=== PATIENT | female | born 1950 | race Caucasian/White ===

== ENCOUNTER 2016-09-21 12:18 | Observation (INO) | payer OTHER ==
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
[2016-09-21] MEDS ORDERED: CLINDAMYCIN 600MG PREMIX IVPB 50 ML IVPB ONE ×2 (12:55→13:47)
[2016-09-21] MEDS ORDERED: SODIUM CHLORIDE 1,000 ML IV STA (12:55)
[2016-09-21] MEDS ORDERED: KETOROLAC TROMETHAMINE 30 MG/1 ML VIAL IVPUSH ONE (12:55)
[2016-09-21] MEDS ORDERED: KETOROLAC TROMETHAMINE 30 MG/1 ML VIAL ONE (13:47)
[2016-09-21 13:48] LABS: BASOPHIL 0.2 % (0-2.0); EOSINOPHIL 0.9 % (0-4.5); MCH 28.8 pg (25.7-33.7); MCHC 33.6 g/dl (32.0-36.0); MEAN CELL VOLUME 85.8 fl (80-96); MEAN PLT VOLUME 8.1 fl (7.5-11.1); NEUTROPHILS 75.1 % (42.8-82.8); PLATELET COUNT 220 K/MM3 (134-434); RDW 13.7 % (11.6-15.6); WHITE BLOOD COUNT 10.2 K/mm3 (4.0-10.0)
[2016-09-21 14:21] LABS: ALBUMIN 3.9 g/dl (3.4-5.0); ALK PHOS 81 U/L (45-117); ANION GAP 11 (8-16); BILIRUBIN,TOTAL 0.6 mg/dL (0.2-1.0); CALCIUM 9.3 mg/dL (8.5-10.1); CO2 24 mmol/L (21-32); COCKROFT - GAULT 115.3025; CREATININE 0.6 mg/dL (0.55-1.02); GLUCOSE,RANDOM 91 mg/dL (74-106); SGOT/AST 33 U/L (15-37); SGPT/ALT 46 U/L (12-78); TOT PROT 6.7 g/dl (6.4-8.2)
[2016-09-21] MEDS ORDERED: KETOROLAC TROMETHAMINE 15 MG/ML VIAL IVPUSH PRN (17:06)
[2016-09-21] MEDS ORDERED: ACETAMINOPHEN 325 MG TABLET (FP) PO PRN (17:07)
[2016-09-21] MEDS ORDERED: ONDANSETRON 4 MG/2 ML VIAL IVPB PRN (17:07)
--- NOTE | 2016-09-21 17:08 | HP ---
CHIEF COMPLAINT: Dental pain PCP: Dr. Rosales ([place]) HISTORY OF PRESENT ILLNESS: This is a 66 year old female with a history only of bradycardia who presented to the ED today complaining of one week of left upper dental pain, now associated with facial pain and swelling. She has had subjective fevers/chills. She has difficulty opening her mouth fully and has not eaten for four days. ER course was notable for: (1) CT facial bones: periapical abscess involving left first premolar tooth with suggstion of odontogenic soft tissue abscess 1.3 x 0.5cm. Incidentally noted are expanded appearance of the superior ophthalmic veins bilaterally which could be on the basis of chronic partial thrombosis. (2) Afebrile, WBC 10.2 (3) Abscess partially drained in ED Recent Travel: None Surgical History: Appendectomy, cholecystectomy, hernia repair Social History: Retired carpet layer. Lives alone, has help from caityon's family nearby when needed. Smoking: Quit >30 yrs ago Alcohol: None Drugs: None Family History: Non-contributory to this admission Allergies PCN ("swell up"), codeine (rash) HOME MEDICATIONS: Home Medications Medication Instructions Recorded Aspirin [ASA -] 81 mg PO DAILY 09/21/16 REVIEW OF SYSTEMS CONSTITUTIONAL: Subjective fevers/chills Absent: diaphoresis, generalized weakness, malaise, loss of appetite, weight change HEENT: See HPI Absent: rhinorrhea, nasal congestion, throat pain, throat swelling, difficulty swallowing, mouth swelling, ear pain, eye pain, visual changes CARDIOVASCULAR: Absent: chest pain, syncope, palpitations, irregular heart rate, lightheadedness , peripheral edema RESPIRATORY: Absent: cough, shortness of breath, dyspnea with exertion, orthopnea, wheezing, stridor, hemoptysis GASTROINTESTINAL: Absent: abdominal pain, abdominal distension, nausea, vomiting, diarrhea, constipation, melena, hematochezia GENITOURINARY: Absent: dysuria, frequency, urgency, hesitancy, hematuria, flank pain, genital pain MUSCULOSKELETAL: Absent: myalgia, arthralgia, joint swelling, back pain, neck pain SKIN: Absent: rash, itching, pallor HEMATOLOGIC/IMMUNOLOGIC: Absent: easy bleeding, easy bruising, lymphadenopathy, frequent infections ENDOCRINE: Absent: unexplained weight gain, unexplained weight loss, heat intolerance, cold intolerance NEUROLOGIC: Absent: headache, focal weakness or paresthesias, dizziness, unsteady gait, seizure, mental status changes, bladder or bowel incontinence PSYCHIATRIC: Absent: anxiety, depression, suicidal or homicidal ideation, hallucinations. PHYSICAL EXAMINATION Vital Signs - 24 hr 09/21/16 12:32 Temperature 98.2 F Pulse Rate 55 L Respiratory 18 Rate Blood Pressure 141/89 O2 Sat by Pulse 97 Oximetry (%) GENERAL: Awake, alert, and fully oriented, in no acute distress. HEAD: Normal with no signs of trauma. EYES: Pupils equal, round and reactive to light, extraocular movements intact, sclera anicteric, conjunctiva clear. No lid lag. EARS, NOSE, THROAT: Ears normal, nares patent, oropharynx clear without exudates. Moist mucous membranes. Fluctuant, tender mass at #12 tooth, spontaneously draining pus. Very tender over left maxilla. Mild trismus. Submandibular space is soft and without edema. NECK: Normal range of motion, supple without lymphadenopathy, JVD, or masses. LUNGS: Breath sounds equal, clear to auscultation bilaterally. No wheezes, and no crackles. No accessory muscle use. HEART: Regular rate and rhythm, normal S1 and S2 without murmur, rub or gallop. ABDOMEN: Soft, nontender, not distended, normoactive bowel sounds, no guarding, no rebound, no masses. No hepatomegaly or splenomegaly. MUSCULOSKELETAL: Normal range of motion at all joints. No bony deformities or tenderness. No CVA tenderness. UPPER EXTREMITIES: 2+ pulses, warm, well-perfused. No cyanosis. No clubbing. No peripheral edema. LOWER EXTREMITIES: 2+ pulses, warm, well-perfused. No calf tenderness. No peripheral edema. NEUROLOGICAL: Cranial nerves II-XII intact. Normal speech. Normal gait. PSYCHIATRIC: Cooperative. Good eye contact. Appropriate mood and affect. SKIN: Warm, dry, normal turgor, no rashes or lesions noted, normal capillary refill. Laboratory Results - last 24 hr 09/21/16 09/21/16 13:40 13:40 WBC 10.2 H RBC 4.68 Hgb 13.5 Hct 40.2 MCV 85.8 MCHC 33.6 RDW 13.7 Plt Count 220 MPV 8.1 Neutrophils % 75.1 Lymphocytes % 17.7 Monocytes % 6.1 Eosinophils % 0.9 Basophils % 0.2 Sodium 141 Potassium 4.2 Chloride 106 Carbon Dioxide 24 Anion Gap 11 BUN 15 Creatinine 0.6 Creat Clearance w eGFR > 60 Random Glucose 91 Calcium 9.3 Total Bilirubin 0.6 AST 33 ALT 46 Alkaline Phosphatase 81 Total Protein 6.7 Albumin 3.9 ASSESSMENT/PLAN: 66 year old female with facial cellulitis secondary to dental abscess. Problem List - Problem (1) Facial cellulitis Assessment/Plan: -Clindamycin 600mg q6h IVPB -Toradol 15mg q6h IVP prn pain (patient reports she is intolerant of all narcotics) -IVF -Zofran prn nausea -Monitor temp, WBC -Has dental appointment on Saturday -If worsening, consider transfer to facility with [facility] services Code(s): L03.211 - CELLULITIS OF FACE (2) Bradycardia Assessment/Plan: -Chronic, asymptomatic -Hold ASA while receiving Toradol Code(s): R00.1 - BRADYCARDIA, UNSPECIFIED (3) DVT prophylaxis Assessment/Plan: -Low risk -Ambulation Code(s): MZM9693 - Visit type - Emergency Visit Emergency Visit: Yes ED Registration Date: 09/21/16 Care time: The patient presented to the Emergency Department on the above date and was hospitalized for further evaluation of their emergent condition. - New Patient This patient is new to me today: Yes Date on this admission: 09/21/16 - Critical Care Critical Care patient: No
[2016-09-21] MEDS: SODIUM CHLORIDE 1,000 ML IV SCH ×2 (18:32→22:27)
[2016-09-21 20:24] VITALS: BMI 35.2
[2016-09-21] MEDS: KETOROLAC TROMETHAMINE 15 MG/ML VIAL IVPB PRN (22:25)
[2016-09-21] MEDS: CLINDAMYCIN 600MG PREMIX IVPB 50 ML IVPB SCH (22:26)
[2016-09-22] MEDS: CLINDAMYCIN 600MG PREMIX IVPB 50 ML IVPB SCH ×4 (03:40→20:28)
[2016-09-22 08:05] LABS: BASOPHIL 0.4 % (0-2.0); EOSINOPHIL 1.4 % (0-4.5); MCH 28.6 pg (25.7-33.7); MCHC 33.7 g/dl (32.0-36.0); MEAN CELL VOLUME 84.7 fl (80-96); NEUTROPHILS 62.9 % (42.8-82.8); PLATELET COUNT 223 K/MM3 (134-434); RDW 13.6 % (11.6-15.6); WHITE BLOOD COUNT 7.7 K/mm3 (4.0-10.0)
[2016-09-22] MEDS: KETOROLAC TROMETHAMINE 15 MG/ML VIAL IVPB PRN ×2 (08:14→17:50)
[2016-09-22 08:50] LABS: ALBUMIN 3.2 g/dl (3.4-5.0); ALK PHOS 72 U/L (45-117); ANION GAP 8 (8-16); BILIRUBIN,TOTAL 0.4 mg/dL (0.2-1.0); CALCIUM 8.6 mg/dL (8.5-10.1); CO2 26 mmol/L (21-32); COCKROFT - GAULT 122.3405; CREATININE 0.6 mg/dL (0.55-1.02); GLUCOSE,RANDOM 93 mg/dL (74-106); SGOT/AST 24 U/L (15-37); SGPT/ALT 36 U/L (12-78); TOT PROT 5.7 g/dl (6.4-8.2)
[2016-09-22] MEDS ORDERED: AMPICILLIN NA/SULBACTAM NA 100 ML IVPB SCH (09:00)
[2016-09-22] MEDS: SODIUM CHLORIDE 1,000 ML IV SCH ×2 (11:27→17:50)
--- NOTE | 2016-09-22 13:37 | PN ---
Physical Exam: SUBJECTIVE: Patient seen and examined. She reports having the chills last night , she feels well enough this AM to wash up. she cannot open her mouth wide due to tenderness. OBJECTIVE: Vital Signs Period Temp Pulse Resp BP Sys/Major Pulse Ox Last 24 Hr 98 F-99.5 F 56-65 16-20 140-154/79-85 98-98 PE Neuro: alert, awake, cn 2-12intact HEENT: L buccal swelling and cheek tenderness, warm, no erythema, abscess noted to upper gum Pulm: CTAB CV: s1 s2 bradycardia no mrg Abd: s nt nd + bs ExT: warm, no le edema Laboratory Results - last 24 hr 09/22/16 09/22/16 06:00 06:00 WBC 7.7 RBC 4.30 Hgb 12.3 Hct 36.4 MCV 84.7 MCHC 33.7 RDW 13.6 Plt Count 223 MPV 9.0 D Neutrophils % 62.9 Lymphocytes % 26.9 D Monocytes % 8.4 Eosinophils % 1.4 Basophils % 0.4 Sodium 140 Potassium 4.2 Chloride 106 Carbon Dioxide 26 Anion Gap 8 BUN 10 D Creatinine 0.6 Creat Clearance w eGFR > 60 Random Glucose 93 Calcium 8.6 Total Bilirubin 0.4 D AST 24 D ALT 36 D Alkaline Phosphatase 72 Total Protein 5.7 L Albumin 3.2 L Active Medications Generic Name Dose Route Start Last Admin Trade Name Freq PRN Reason Stop Dose Admin Acetaminophen 650 mg 09/21/16 17:07 Tylenol - PO Q4H PRN FEVER OR PAIN Clindamycin Phosphate 50 mls @ 100 mls/hr 09/21/16 21:00 09/22/16 08:15 Cleocin 600 Mg Premix Ivpb - IVPB 100 mls/hr Q6H-IV GERMAINE Administration Sodium Chloride 1,000 mls @ 100 mls/hr 09/21/16 17:15 09/21/16 22:27 Normal Saline - IV 09/23/16 03:14 100 mls/hr ASDIR GERMAINE Administration Ampicillin Sodium/Sulbactam 100 mls @ 200 mls/hr 09/22/16 09:45 Sodium 3 gm/ Sodium Chloride IVPB Q6H-IV GERMAINE Ketorolac Tromethamine 15 mg 09/21/16 21:38 09/22/16 08:14 Toradol Injection - IVPB 09/26/16 17:05 15 mg Q6H PRN Administration PAIN Ondansetron HCl 4 mg 09/21/16 17:07 Zofran Injection IVPB Q6H PRN NAUSEA Microbiology 09/21/16 13:26 Blood - Peripheral Venous Blood Culture - Preliminary NO GROWTH OBTAINED AFTER 24 HOURS, INCUBATION TO CONTINUE FOR 4 DAYS. 09/21/16 13:26 Blood - Peripheral Venous Blood Culture - Preliminary NO GROWTH OBTAINED AFTER 24 HOURS, INCUBATION TO CONTINUE FOR 4 DAYS. Assessment: 66 year old female with facial cellulitis secondary to dental abscess. Plan: 1. Facial cellulitis - Start unasyn q6 - Clindamycin 600mg q6h IVPB - Toradol 15mg q6h IVP prn pain - Has dental appointment on Saturday with Dr. Porter [phone] - If worsening, will transfer [facility] services 2. Chronic asymptomatic bradycardia - Hold ASA while receiving Toradol 3. DVT - OOB and ambulate Visit type - Emergency Visit Emergency Visit: Yes ED Registration Date: 09/21/16 Care time: The patient presented to the Emergency Department on the above date and was hospitalized for further evaluation of their emergent condition. - New Patient This patient is new to me today: Yes Date on this admission: 09/22/16 - Critical Care Critical Care patient: No
[2016-09-22] MEDS: AMPICILLIN NA/SULBACTAM NA 3 GM in SODIUM CHLORIDE 100 ML IVPB SCH ×2 (14:27→21:05)
[2016-09-23] MEDS: CLINDAMYCIN 600MG PREMIX IVPB 50 ML IVPB SCH ×4 (02:08→21:08)
[2016-09-23] MEDS ORDERED: PT OWN MED DRAWER 7, Y5N ONE ×4 (02:11→21:03)
[2016-09-23] MEDS: AMPICILLIN NA/SULBACTAM NA 3 GM in SODIUM CHLORIDE 100 ML IVPB SCH ×4 (02:12→21:08)
[2016-09-23] MEDS: KETOROLAC TROMETHAMINE 15 MG/ML VIAL IVPB PRN (05:17)
[2016-09-23 08:18] LABS: BASOPHIL 0.1 % (0-2.0); EOSINOPHIL 1.9 % (0-4.5); MCH 28.6 pg (25.7-33.7); MEAN CELL VOLUME 84.2 fl (80-96); MEAN PLT VOLUME 8.8 fl (7.5-11.1); NEUTROPHILS 55.3 % (42.8-82.8); PLATELET COUNT 234 K/MM3 (134-434); RDW 13.3 % (11.6-15.6); WHITE BLOOD COUNT 6.6 K/mm3 (4.0-10.0)
--- NOTE | 2016-09-23 13:27 | PN ---
Physical Exam: SUBJECTIVE: Patient seen and examined. She is feeling better, her pain has been controlled up until 11. She still cant open her mouth w/o assistance. OBJECTIVE: Vital Signs Period Temp Pulse Resp BP Sys/Major Pulse Ox Last 24 Hr 98.5 F-99.1 F 62-68 18-20 123-148/70-92 PE Neuro: alert, awake, cn 2-12intact HEENT: L buccal swelling- improved, cheek tenderness, warm, no erythema, abscess noted to upper gum Pulm: CTAB CV: s1 s2 bradycardia no mrg Abd: s nt nd + bs ExT: warm, no le edema Laboratory Results - last 24 hr 09/23/16 06:00 WBC 6.6 RBC 4.22 Hgb 12.1 Hct 35.6 MCV 84.2 MCHC 34.0 RDW 13.3 Plt Count 234 MPV 8.8 Neutrophils % 55.3 Lymphocytes % 33.8 D Monocytes % 8.9 Eosinophils % 1.9 Basophils % 0.1 Active Medications Generic Name Dose Route Start Last Admin Trade Name Freq PRN Reason Stop Dose Admin Acetaminophen 650 mg 09/21/16 17:07 Tylenol - PO Q4H PRN FEVER OR PAIN Clindamycin Phosphate 50 mls @ 100 mls/hr 09/21/16 21:00 09/23/16 08:57 Cleocin 600 Mg Premix Ivpb - IVPB 100 mls/hr Q6H-IV GERMAINE Administration Ampicillin Sodium/Sulbactam 100 mls @ 200 mls/hr 09/22/16 09:45 09/23/16 08:57 Sodium 3 gm/ Sodium Chloride IVPB 200 mls/hr Q6H-IV GERMAINE Administration Ketorolac Tromethamine 15 mg 09/21/16 21:38 09/23/16 05:17 Toradol Injection - IVPB 09/26/16 17:05 15 mg Q6H PRN Administration PAIN Ondansetron HCl 4 mg 09/21/16 17:07 Zofran Injection IVPB Q6H PRN NAUSEA Tramadol HCl 50 mg 09/23/16 13:24 Ultram - PO Q4H PRN PAIN Assessment: 66 year old female with facial cellulitis secondary to dental abscess. Plan: 1. Facial cellulitis d/t dental abscess - Improved - Unasyn q6 - Clindamycin 600mg q6h IVPB - Trial Ultram prn pain - Toradol 15mg q6h IVP prn pain - Has dental appointment as walk in w/ Dr. Porter [phone] - If worsening, will transfer [facility] services - Trial soft diet 2. Chronic asymptomatic bradycardia - Hold ASA while receiving Toradol 3. DVT - OOB and ambulate Visit type - Emergency Visit Emergency Visit: Yes ED Registration Date: 09/21/16 Care time: The patient presented to the Emergency Department on the above date and was hospitalized for further evaluation of their emergent condition. - New Patient This patient is new to me today: No - Critical Care Critical Care patient: No
[2016-09-23] MEDS: traMADol HCL 50 MG TABLET PO PRN (15:05)
[2016-09-23] MEDS: POLYETHYLENE GLYCOL 3350 119 GM BTL PO SCH (15:05)
--- NOTE | 2016-09-23 16:29 | EKG ---
Test Reason : Blood Pressure : / mmHG Vent. Rate : 049 BPM Atrial Rate : 049 BPM P-R Int : 140 ms QRS Dur : 084 ms QT Int : 454 ms P-R-T Axes : 007 030 043 degrees QTc Int : 410 ms SINUS BRADYCARDIA OTHERWISE NORMAL ECG NO PREVIOUS ECGS AVAILABLE Confirmed by TRINA MARTINES MD ([id number]) on 09/23/2016 4:29:26 PM Referred By: Confirmed By:TRINA MARTINES MD
[2016-09-23] MEDS: SENNOSIDES 8.6MG TABLET (FP) PO SCH (21:08)
[2016-09-24] MEDS ORDERED: PT OWN MED DRAWER 7, Y5N ONE ×2 (02:09→11:19)
[2016-09-24] MEDS: AMPICILLIN NA/SULBACTAM NA 3 GM in SODIUM CHLORIDE 100 ML IVPB SCH ×4 (02:13→20:21)
[2016-09-24] MEDS: CLINDAMYCIN 600MG PREMIX IVPB 50 ML IVPB SCH ×4 (02:13→21:18)
[2016-09-24] MEDS: traMADol HCL 50 MG TABLET PO PRN (11:25)
[2016-09-24] MEDS: POLYETHYLENE GLYCOL 3350 119 GM BTL PO SCH (11:27)
--- NOTE | 2016-09-24 18:03 | PN ---
Physical Exam: SUBJECTIVE: Patient seen and examined. Pt denies fevers. She does c/o hardening near L nasal bridge feeling as though something has accumulated. OBJECTIVE: Vital Signs Period Temp Pulse Resp BP Sys/Major Pulse Ox Last 24 Hr 97.7 F-98.7 F 58-73 18-22 113-129/65-78 95-95 PE Neuro: alert, awake, cn 2-12intact HEENT: L buccal swelling- improved, cheek tenderness, left superior orbital ? collection, appears swollen, no erythema, mild tenderness Pulm: CTAB CV: s1 s2 rrr no mrg Abd: s nt nd + bs ExT: warm, no le edema Active Medications Generic Name Dose Route Start Last Admin Trade Name Freq PRN Reason Stop Dose Admin Acetaminophen 650 mg 09/21/16 17:07 Tylenol - PO Q4H PRN FEVER OR PAIN Clindamycin Phosphate 50 mls @ 100 mls/hr 09/21/16 21:00 09/24/16 15:36 Cleocin 600 Mg Premix Ivpb - IVPB Not Given Q6H-IV GERMAINE Ampicillin Sodium/Sulbactam 100 mls @ 200 mls/hr 09/22/16 09:45 09/24/16 15:36 Sodium 3 gm/ Sodium Chloride IVPB Not Given Q6H-IV GERMAINE Ketorolac Tromethamine 15 mg 09/21/16 21:38 09/23/16 05:17 Toradol Injection - IVPB 09/26/16 17:05 15 mg Q6H PRN Administration PAIN Ondansetron HCl 4 mg 09/21/16 17:07 Zofran Injection IVPB Q6H PRN NAUSEA Polyethylene Glycol 17 gm 09/23/16 14:00 09/24/16 11:27 Miralax (For Daily Use) - PO Not Given DAILY GERMAINE Senna 1 tab 09/23/16 22:00 09/23/16 21:08 Senna - PO 1 tab HS GERMAINE Administration Tramadol HCl 50 mg 09/23/16 13:24 09/24/16 11:25 Ultram - PO 50 mg Q4H PRN Administration PAIN Assessment: 66 year old female with facial cellulitis secondary to dental abscess. Plan: 1. Facial cellulitis d/t dental abscess - Will obtain repeat facial bone CT to assess new collection - ENT consulted, awaiting recs, or will have to transfer for [facility] - Unasyn q6 - Clindamycin 600mg q6h IVPB - Ultram prn pain - D/w dentist Dr. Porter, he will see her after she is evaluated by [facility] as follow up, he wont do the extraction ([phone]) 2. Chronic asymptomatic bradycardia - Hold ASA while receiving Toradol 3. DVT - OOB and ambulate Visit type - Emergency Visit Emergency Visit: Yes ED Registration Date: 09/21/16 Care time: The patient presented to the Emergency Department on the above date and was hospitalized for further evaluation of their emergent condition. - New Patient This patient is new to me today: No - Critical Care Critical Care patient: No
[2016-09-24] MEDS ORDERED: SODIUM CHLORIDE 1,000 ML IV SCH (18:15)
[2016-09-24] MEDS ORDERED: ACETAMINOPHEN/CAFFEINE/BUTALBITAL 1 TAB PO ONE (18:16)
[2016-09-24] MEDS: SENNOSIDES 8.6MG TABLET (FP) PO SCH (21:20)
[2016-09-25] MEDS ORDERED: PT OWN MED DRAWER 7, Y5N ONE (03:04)
[2016-09-25] MEDS: AMPICILLIN NA/SULBACTAM NA 3 GM in SODIUM CHLORIDE 100 ML IVPB SCH ×2 (03:08→09:35)
[2016-09-25] MEDS: CLINDAMYCIN 600MG PREMIX IVPB 50 ML IVPB SCH ×2 (03:38→09:35)
[2016-09-25 07:21] LABS: MCH 28.5 pg (25.7-33.7); MCHC 33.9 g/dl (32.0-36.0); MEAN PLT VOLUME 8.4 fl (7.5-11.1); PLATELET COUNT 274 K/MM3 (134-434); RDW 13.3 % (11.6-15.6); WHITE BLOOD COUNT 6.6 K/mm3 (4.0-10.0)
[2016-09-25 07:48] LABS: CALCIUM 9.6 mg/dL (8.5-10.1)
[2016-09-25 07:51] LABS: COCKROFT - GAULT 104.8645; CREATININE 0.7 mg/dL (0.55-1.02)
[2016-09-25] MEDS: traMADol HCL 50 MG TABLET PO PRN (09:35)
--- NOTE | 2016-09-25 10:15 | DS ---
Physical Exam: SUBJECTIVE: Patient seen and examined OBJECTIVE: Vital Signs Period Temp Pulse Resp BP Sys/Major Pulse Ox Last 24 Hr 98.2 F-99.5 F 47-73 18-20 101-115/59-79 95 PE Laboratory Results - last 24 hr 09/25/16 09/25/16 06:00 06:00 WBC 6.6 RBC 4.69 Hgb 13.4 D Hct 39.4 MCV 84.0 MCHC 33.9 RDW 13.3 Plt Count 274 MPV 8.4 Sodium 141 Potassium 5.0 Chloride 105 Carbon Dioxide 28 Anion Gap 8 BUN 13 D Creatinine 0.7 Random Glucose 96 Calcium 9.6 HOSPITAL COURSE: Date of Admission:09/21/16 Date of Discharge: 09/25/16 Minutes to complete discharge: 37 Discharge Summary Reason For Visit: CELLULITIS OF THE FACE; DENTAL ABSCESS Current Active Problems Bradycardia (Acute) DVT prophylaxis (Acute) Dental abscess (Acute) Facial cellulitis (Acute) Condition: Stable - Instructions Referrals: Linda Payan MD [Primary Care Provider] - - Home Medications Comprehensive Discharge Medication List: Ambulatory Orders Aspirin [ASA -] 81 mg PO DAILY 09/21/16 Amox-Tr/K Cl [Augmentin - 875Mg Tablet] 1 tab PO BID #28 tablet 09/25/16 Clindamycin [Cleocin -] 300 mg PO Q6HPO #44 capsule 09/25/16
--- NOTE | 2016-09-25 10:27 | DS ---
Physical Exam: SUBJECTIVE: Patient seen and examined. She had pain all night. The warmth in her cheek is less. She denies fever, chills, visual changes. Today she reported she has an PCN allergy. OBJECTIVE: Vital Signs Period Temp Pulse Resp BP Sys/Major Pulse Ox Last 24 Hr 98.2 F-99.5 F 47-73 18-20 101-115/59-79 95 PE Neuro: alert, awake, cn 2-12intact HEENT: L buccal swelling- improved, cheek tenderness, left superior orbital/ maxillary swelling, fluctant, no erythema, mild tenderness Pulm: CTAB, left chest mild petechiae CV: s1 s2 rrr no mrg Abd: s nt nd + bs ExT: warm, no le edema Laboratory Results - last 24 hr 09/25/16 09/25/16 06:00 06:00 WBC 6.6 RBC 4.69 Hgb 13.4 D Hct 39.4 MCV 84.0 MCHC 33.9 RDW 13.3 Plt Count 274 MPV 8.4 Sodium 141 Potassium 5.0 Chloride 105 Carbon Dioxide 28 Anion Gap 8 BUN 13 D Creatinine 0.7 Random Glucose 96 Calcium 9.6 HOSPITAL COURSE: Date of Admission:09/21/16 Date of Discharge: 09/25/16 Minutes to complete discharge: 37 Discharge Summary Reason For Visit: CELLULITIS OF THE FACE; DENTAL ABSCESS Current Active Problems Bradycardia (Acute) DVT prophylaxis (Acute) Dental abscess (Acute) Facial cellulitis (Acute) Hospital Course: Initial Hospital Course: Briefly, this 66 year old female with a history only of bradycardia who presented to the ED today complaining of one week of left upper dental pain, now associated with facial pain and swelling. She has had subjective fevers/ chills. She has difficulty opening her mouth fully and has not eaten for four days. Assessment: 66 year old female with facial cellulitis secondary to dental abscess. Subsequent Hospital Course/Progress Note/Discharge Summary by a/p: Plan: 1. Facial cellulitis d/t dental abscess - Repeat CT shows abscess increased - Will stop Unasyn (3 days) - Clindamycin 300mg po q6 x 14 day total - PCN allergy, will send ceftin 500mg bid x11 days - Patient is being discharged. She has an appointment today at the Dental oral surgery clinic at: [address] [id number] [facility], 1st floor - Dr. Andrew Bridges is going to see her, he is expecting her by 11am. She has been NPO for possible sedation at 3pm if procedure can not be done under local sedation. - Taxi has been booked for pt to go directly to the clinic - CT imaging is being sent with pt - Discussed with pt, CM, nursing mgmt and receiving physician, all are aware and agree to above plan 2. Chronic asymptomatic bradycardia - ASA on hold since 09/22 - Can resume ASA once oral surgery completed Dispo: - Plan as above - Dentist Dr. Porter ([phone]) for follow up after OMFS procedure, d/w him yesterday 09/25 he is aware. Condition: Stable - Instructions Diet, Activity, Other Instructions: You are being discharged and are being sent directly to the Dental oral surgery clinic at [facility]. [address] [place] [address]. [place] [id number]. Please report to the [facility] first floor. Dr. Andrew Bridges ([phone]) will see you and address your abscess under local sedation and if need be he will do the procedure until sedation at 3pm. He is expecting you. Please do not eat or drink anything until he sees you in the clinic Antibiotics have been sent to your pharmacy for last picker if you don't receive any from Dr. Bridges Follow up with Dr. Porter after your procedure, he is also expecting you Referrals: Linda Payan MD [Primary Care Provider] - Disposition: TRANSFER ACUTE CARE/OTHER HOSP - Home Medications Comprehensive Discharge Medication List: Ambulatory Orders Aspirin [ASA -] 81 mg PO DAILY 09/21/16 Amox-Tr/K Cl [Augmentin - 875Mg Tablet] 1 tab PO BID #28 tablet 09/25/16 Clindamycin [Cleocin -] 300 mg PO Q6HPO #44 capsule 09/25/16 Lactobacillus Acidophilus [Bacid -] 1 each PO DAILY #14 capsule 09/25/16 This patient is new to me today: No Emergency Visit: Yes ED Registration Date: 09/21/16 Care time: The patient presented to the Emergency Department on the above date and was hospitalized for further evaluation of their emergent condition. Critical Care patient: No - Discharge Referral Referred to [facility] Med [facility].: No
[2016-09-25 14:49] VITALS: BP 117/73; PULSE 61; TEMP 97.8
== END 2016-09-25 11:04 | disposition home or self-care (01) ==
LOC: JER 12:18 → JERBED 17:00 → J7W 18:55
PROVIDERS: ADMIT Internal Medicine; ATTEND Nurse Practitioner Acute Care
PROC: 0C950ZZ Drainage of Upper Gingiva, Open Approach (ICD-10-PCS; principal; 2016-09-21)
PROC: 3E03329 Introduction of Other Anti-infective into Peripheral Vein, Percutaneous Approach (ICD-10-PCS; 2016-09-21)
PROC: 3E0333Z Introduction of Anti-inflammatory into Peripheral Vein, Percutaneous Approach (ICD-10-PCS; 2016-09-21)
PROC: 3E0337Z Introduction of Electrolytic and Water Balance Substance into Peripheral Vein, Percutaneous Approach (ICD-10-PCS; 2016-09-21)
DX: K04.7 Periapical abscess without sinus (principal); L03.211 Cellulitis of face; R00.1 Bradycardia, unspecified
CPT/HCPCS: 36415; 70487-TC; 80048; 80053; 85025; 85027; 87040; 93005; 93010; 99284-25; G0378

== ENCOUNTER 2017-01-16 05:37 | Emergency (ER) | payer OTHER ==
--- NOTE | 2017-01-16 05:53 | PDOC ---
History of Present Illness - General Chief Complaint: Lightheaded Stated Complaint: DIZZINESS Time Seen by Provider: 01/16/17 05:51 - History of Present Illness Initial Comments: 01/16/17 05:52 CHIEF COMPLAINT: dizziness HISTORY OF PRESENT ILLNESS: 66 yo F with hx of vertigo, low blood pressure, and low HR presents to ED with c/o of dizziness. Patient states the dizziness began "14 years ago from a massive ear infection, but this time it started really bothering me around 3 months ago." Patient reports that she received meclizine from her PCP which "usually works" but she has had cold and sinus symptoms "that came out of nowhere" over the past 72 hours, and now she is having a "severe headache and dizziness." She reports photophobia and states that she has not been able to eat due to her discomfort. She reports chills but denies any fever, nausea, or vomiting. She reports congestion, cough, and runny nose that she tried to treat with rodrigo seltzer with no relief. She denies any ringing in the ears, weakness, slurred speech, change in vision. PAST MEDICAL HISTORY: as per HPI FAMILY HISTORY: Denies SOCIAL HISTORY:Denies tobacco, alcohol, illicit drug use. SURGICAL HISTORY: Denies ALLERGIES: clonazepam, codeine, PCN REVIEW OF SYSTEMS General/Constitutional: Intermittent chills. Denies fever. Denies weakness, weight change. HEENT: Denies change in vision. Denies ear pain or discharge. Denies sore throat. Cardiovascular: Denies chest pain or shortness of breath. Respiratory: Cough x "72 hours" Gastrointestinal: Denies nausea, vomiting, diarrhea or constipation. Denies rectal bleeding. Genitourinary: Denies dysuria, frequency, or change in urination. Musculoskeletal: Denies joint or muscle swelling or pain. Denies neck or back pain. Skin: Denies rash or easy bruising. Neurologic: Headache and vertigo, "every time I turn my head to the left". Denies loss of consciousness, or loss of sensation. PHYSICAL EXAM General Appearance: Well-appearing, appropriately dressed. No apparent distress. HEENT: Photophobia. EOMI, PERRLA, normal ENT inspection, normal voice, TMs normal, pharynx normal. No conjunctival pallor. Denies scleral icterus. Respiratory/Chest: Wet cough. Lungs CTAB. No shortness of breath, chest tenderness, respiratory distress, accessory muscle use. No crackles, rales, rhonchi, stridor, wheezing, dullness Cardiovascular: RRR. S1, S2. No JVD, murmur, bradycardia, tachycardia. Gastrointestinal/Abdominal: Normal bowel sounds. Abdomen soft, non-distended. No tenderness or rebound tenderness. No organomegaly, pulsatile mass, guarding , hernia, hepatomegaly, splenomegaly. Musculoskeletal/Extremities: Normal inspection. FROM of all extremities, normal capillary refill. Pelvis Stable. No CVA tenderness. No tenderness to extremities, pedal edema, swelling, erythema or deformity. Integumentary: Appropriate color, dry, warm. No cyanosis, erythema, jaundice or rash Neurologic: counseling services manager II-XII intact. Fully oriented, alert. Appropriate mood/affect. Motor strength 5/5. No appreciable EOM palsy, facial droop or sensory deficit. Past History - Past Medical History Allergies/Adverse Reactions: Allergies Allergy/AdvReac Type Severity Reaction Status Date / Time clonazepam [From Klonopin] Allergy Verified 01/16/17 06:00 codeine Allergy Verified 01/16/17 06:00 Penicillins Allergy Verified 01/16/17 06:00 Home Medications: Ambulatory Orders Aspirin [ASA -] 81 mg PO BID 01/16/17 Anemia: No Asthma: No Cancer: No 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.) CVA: No COPD: No CHF: No Dementia: No Diabetes: No GI Disorders: No Disorders: No HTN: No Hypercholesterolemia: No Liver Disease: No Seizures: No Thyroid Disease: No - Surgical History Abdominal Surgery: Yes (hernia repair) Appendectomy: Yes Cardiac Surgery: No Cholecystectomy: Yes Lung Surgery: No Neurologic Surgery: No Orthopedic Surgery: No - Suicide/Smoking/Psychosocial Hx Smoking History: Former smoker Have you smoked in the past 12 months: No If you are a former smoker, when did you quit?: 1970 Hx Alcohol Use: No Drug/Substance Use Hx: No Substance Use Type: None Hx Substance Use Treatment: No Medical Decision Making - Medical Decision Making 01/16/17 06:51 66 yo F with hx of vertigo, low blood pressure, and low HR presents to ED with c /o of dizziness. -IVF, Toradol, Reglan, Benadryl -Influenza rapid swab Case discussed in detail with oncoming emergency provider including history, physical exam and ancillary studies. In brief, this patient is being seen in the ED for a chief complaint of: I have completed the initial assessment interview note and have ordered the following labs: flu swab Pending results: flu swab Plan for disposition as follows: reassess after meds Oncoming NPA Robina has assumed care for the patient and will complete the evaluation and treatment. *DC/Admit/Observation/Transfer Diagnosis at time of Disposition: Chronic vertigo - Discharge Dispostion Disposition: HOME Condition at time of disposition: Stable Admit: No - Patient Instructions Printed Discharge Instructions: DI for Vertigo
[2017-01-16 05:59] VITALS: TEMP 98.1; BMI 28.2
[2017-01-16] MEDS ORDERED: MECLIZINE HCL 25 MG TABLET (FP) PO ONE (06:24)
[2017-01-16] MEDS ORDERED: SODIUM CHLORIDE 0.9% 1000 ML INFUS.BAG IV ONE (06:24)
[2017-01-16] MEDS ORDERED: KETOROLAC TROMETHAMINE 30 MG/1 ML VIAL IVPUSH ONE (06:24)
[2017-01-16] MEDS ORDERED: METOCLOPRAMIDE HCL INJECTION 10 MG/2 ML VIAL IVPUSH ONE (06:24)
[2017-01-16] MEDS ORDERED: METOCLOPRAMIDE HCL INJECTION 10 MG/2 ML VIAL ONE (06:40)
[2017-01-16] MEDS ORDERED: MECLIZINE HCL 25 MG TABLET (FP) ONE (06:41)
[2017-01-16] MEDS ORDERED: KETOROLAC TROMETHAMINE 30 MG/1 ML VIAL ONE (06:41)
--- NOTE | 2017-01-16 07:41 | PDOC ---
*Physical Exam - Vital Signs Last Vital Signs Temp Pulse Resp BP Pulse Ox 98.1 F 50 L 16 118/68 98 01/16/17 05:57 01/16/17 05:57 01/16/17 05:57 01/16/17 05:57 01/16/17 05:57 - Physical Exam General Appearance: Yes: Appropriately Dressed. No: Apparent Distress HEENT: positive: Normal Voice Neck: positive: Supple Respiratory/Chest: positive: Lungs Clear, Normal Breath Sounds. negative: Respiratory Distress Cardiovascular: positive: S1, S2 Gastrointestinal/Abdominal: positive: Soft. negative: Tender Extremity: positive: Normal Inspection Integumentary: positive: Dry, Warm Neurologic: positive: Fully Oriented, Alert, Normal Mood/Affect ED Treatment Course - ADDITIONAL ORDERS Additional order review: 01/16/17 06:41 Influenza Types A,B Antigen (ELIAS) - Final Nasopharyngeal Swab - Final - Medications Given in the ED: ED Medications Discontinued Medications Generic Name Dose Route Start Last Admin Trade Name Freq PRN Reason Stop Dose Admin Diphenhydramine HCl 25 mg 01/16/17 06:24 01/16/17 06:58 Benadryl Injection - IVPUSH 01/16/17 06:25 25 mg ONCE ONE Administration Ketorolac Tromethamine 30 mg 01/16/17 06:24 01/16/17 06:58 Toradol Injection - IVPUSH 01/16/17 06:25 30 mg ONCE ONE Administration Meclizine HCl 25 mg 01/16/17 06:24 01/16/17 06:58 Antivert - PO 01/16/17 06:25 25 mg ONCE ONE Administration Metoclopramide HCl 10 mg 01/16/17 06:24 01/16/17 06:58 Reglan Injection - IVPUSH 01/16/17 06:25 10 mg ONCE ONE Administration Sodium Chloride 1,000 ml 01/16/17 06:24 01/16/17 06:58 Normal Saline - IV 01/16/17 06:25 1,000 ml ONCE ONE Administration Medical Decision Making - Medical Decision Making 01/16/17 07:39 Patient signed out to me at 7 AM by STEF Alcazar Patient is a 66-year-old female who endorses history of vertigo s/p "bad ear infection" remotely, low blood pressure and low heart rate, presenting to the ED with her usual vertigo that has been made worse by current URI symptoms that she is experiencing. No tinnitus, body aches, fever or chills. Denies blurry vision or focal weakness. Taking [id number] meds with no relief. Of note , influenza sent and negative. Patient given vertigo cocktail and pending reassessment. Of note, patient has upcoming follow-up with PMD and ENT 01/16/17 07:44 Patient reports feeling significantly better at this time and states vertigo has resolved. Prescription for meclizine sent to pharmacy. Patient now informs me she has PMD appointment in 2 days and will follow-up 01/16/17 07:45 *DC/Admit/Observation/Transfer Diagnosis at time of Disposition: Chronic vertigo - Discharge Dispostion Disposition: HOME Condition at time of disposition: Stable - Prescriptions Prescriptions: Meclizine HCl [Antivert -] 25 mg PO QID #28 tablet - Referrals - Patient Instructions Printed Discharge Instructions: DI for Vertigo Additional Instructions: Rest, maintain adequate hydration and take meclizine as needed for dizziness. Please follow-up with your PMD and ENT - Post Discharge Activity
[2017-01-16 07:57] VITALS: BP 116/70; PULSE 56
== END 2017-01-16 07:57 | disposition home or self-care (01) ==
LOC: JER 05:37
PROC: 3E0333Z Introduction of Anti-inflammatory into Peripheral Vein, Percutaneous Approach (ICD-10-PCS; principal; 2017-01-16)
PROC: 3E033GC Introduction of Other Therapeutic Substance into Peripheral Vein, Percutaneous Approach (ICD-10-PCS; 2017-01-16)
PROC: 3E033GC Introduction of Other Therapeutic Substance into Peripheral Vein, Percutaneous Approach (ICD-10-PCS; 2017-01-16)
DX: R42 Dizziness and giddiness (principal); I95.9 Hypotension, unspecified; R00.1 Bradycardia, unspecified; Z87.891 Personal history of nicotine dependence
CPT/HCPCS: 87804; 99282-25

== ENCOUNTER 2017-04-19 00:03 | Emergency (ER) | payer OTHER ==
--- NOTE | 2017-04-19 00:30 | PDOC ---
History of Present Illness - General History Source: Patient <Joseph Jenkins - Last Filed: 04/19/17 03:23> - General History Source: Patient Exam Limitations: No Limitations - History of Present Illness Initial Comments: 04/19/17 01:37 The patient is a 66-year-old female with a significant past medical history of vertigo, low blood pressure, low HR, s/p stroke (08/21/16), who presents to the emergency department with chest pain and lightheadedness that started 1 hour ago. She reports the chest pain woke her up from sleep, and she called EMS at 12am. She reports the chest pain is left-sided, 7/10 in severity, radiating to the left upper arm, and describes it as a crushing pain as if a 5 lb weight is on her arm and chest. She reports associated lightheadedness, dizziness, and difficulty walking. She notes it is beginning to feel similar to how she felt when she had a stroke. She also reports a throbbing headache at the frontal and right parietal region for 2 weeks, 6/10 in severity. She states she only takes baby aspirin BID and multivitamins, and is compliant with medication. She reports she last ate yesterday, and only had 5 cups of black coffee with sugar today. The patient denies shortness of breath, visual changes, or n/t. The patient denies fever, chills, abdominal pain, nausea, vomit, and diarrhea. The patient denies dysuria, frequency, urgency and hematuria. Allergies: clonazepam, codeine, penicillins, perfume Past Surgical History: appendectomy, cholecystectomy, abdominal hernia repair Social History: former smoker (33 years ago), no other toxic habits <Lena Augustin - Last Filed: 04/19/17 03:29> - General Stated Complaint: CHEST PAIN Time Seen by Provider: 04/19/17 00:30 Past History - Past Medical History Anemia: No Asthma: No Cancer: No 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.) CVA: No COPD: No CHF: No Dementia: No Diabetes: No GI Disorders: No Disorders: No HTN: No Hypercholesterolemia: No Liver Disease: No Seizures: No Thyroid Disease: No - Surgical History Abdominal Surgery: Yes (hernia repair) Appendectomy: Yes Cardiac Surgery: No Cholecystectomy: Yes Lung Surgery: No Neurologic Surgery: No Orthopedic Surgery: No - Suicide/Smoking/Psychosocial Hx Smoking History: Former smoker Have you smoked in the past 12 months: No If you are a former smoker, when did you quit?: 1971 Hx Alcohol Use: No Drug/Substance Use Hx: No Substance Use Type: None Hx Substance Use Treatment: No <GregoryJoseph - Last Filed: 04/19/17 03:23> <Lena Augustin - Last Filed: 04/19/17 03:29> - Past Medical History Allergies/Adverse Reactions: Allergies Allergy/AdvReac Type Severity Reaction Status Date / Time clonazepam [From Klonopin] Allergy Verified 04/19/17 00:55 codeine Allergy Verified 04/19/17 00:55 Penicillins Allergy Verified 04/19/17 00:55 perfume Allergy Verified 04/19/17 00:55 Home Medications: Ambulatory Orders Aspirin [ASA -] 81 mg PO BID 01/16/17 Meclizine HCl [Antivert -] 25 mg PO QID PRN #30 tablet 04/19/17 Review of Systems - Review of Systems Able to Perform ROS?: Yes Comments:: 04/19/17 01:37 CONSTITUTIONAL: Absent: fever, chills, diaphoresis, generalized weakness, malaise, loss of appetite HEENT: Absent: rhinorrhea, nasal congestion, throat pain, throat swelling, mouth swelling, ear pain, eye pain, visual changes CARDIOVASCULAR: Present: (+) chest pain, (+) lightheadedness Absent: syncope, palpitations, irregular heart rate, peripheral edema RESPIRATORY: Absent: cough, shortness of breath, dyspnea with exertion, orthopnea, wheezing, stridor, hemoptysis GASTROINTESTINAL: Absent: abdominal pain, abdominal distension, nausea, vomiting, diarrhea, melena , hematochezia GENITOURINARY: Absent: dysuria, frequency, urgency, hesitancy, hematuria, flank pain, genital pain MUSCULOSKELETAL: Absent: myalgia, arthralgia, joint swelling SKIN: Absent: rash, itching, pallor HEMATOLOGIC/IMMUNOLOGIC: Absent: easy bleeding, easy bruising, lymphadenopathy, frequent infections ENDOCRINE: Absent: unexplained weight gain, unexplained weight loss, heat intolerance, cold intolerance NEUROLOGIC: Present: (+) headache, (+) dizziness Absent: focal weakness or paresthesias, unsteady gait, seizure, mental status changes, bladder or bowel incontinence PSYCHIATRIC: Absent: anxiety, depression, suicidal or homicidal ideation, hallucinations. <Lena Augustin - Last Filed: 04/19/17 03:29> *Physical Exam - Vital Signs Last Vital Signs Temp Pulse Resp BP Pulse Ox 98.1 F 59 L 19 98/60 98 04/19/17 00:56 04/19/17 00:56 04/19/17 00:56 04/19/17 00:56 04/19/17 00:56 - Physical Exam Comments: 04/19/17 03:27 GENERAL: Well developed, well nourished. Awake and alert. No acute distress. HEENT: Normocephalic, atraumatic. PERRLA, EOMI. No conjunctival pallor. Sclera are non- icteric. Moist mucous membranes. Oropharynx is clear. NECK: Supple. Full ROM. No JVD. Carotid pulses 2+ and symmetric, without bruits. No thyromegaly. No lymphadenopathy. CARDIOVASCULAR: Regular rate and rhythm. No murmurs, rubs, or gallops. Distal pulses are 2+ and symmetric. PULMONARY: No evidence of respiratory distress. Lungs clear to auscultation bilaterally. No wheezing, rales or rhonchi. ABDOMINAL: Soft. Non-tender. Non-distended. No rebound or guarding. No organomegaly. Normoactive bowel sounds. MUSCULOSKELETAL Normal range of motion at all joints. No bony deformities or tenderness. No CVA tenderness. EXTREMITIES: No cyanosis. No clubbing. No edema. No calf tenderness. SKIN: Warm and dry. Normal capillary refill. No rashes. No jaundice. NEUROLOGICAL: Alert, awake, appropriate. Cranial nerves 2-12 intact. No deficits to light touch and temperature in face, upper extremities and lower extremities. No motor deficits in the in face, upper extremities and lower extremities. Normoreflexic in the upper and lower extremities. Normal speech. Toes are down- going bilaterally. PSYCHIATRIC: Cooperative. Good eye contact. Appropriate mood and affect. <Lena Augustin - Last Filed: 04/19/17 03:29> Heart Score/ECG Review - ECG Impressions Comment:: 04/19/17 03:28 Sinus bradycardia with sinus arrhythmia Otherwise normal ECG <Lena Augustin - Last Filed: 04/19/17 03:29> ED Treatment Course - LABORATORY CBC & Chemistry Diagram: 04/19/17 01:42 04/19/17 01:42 <Joseph Jenkins - Last Filed: 04/19/17 03:23> - LABORATORY CBC & Chemistry Diagram: 04/19/17 01:42 04/19/17 01:42 - RADIOLOGY Radiograph Interpretation: 04/19/17 03:27 Patient Name: GERMÁN SERRANO THIS IS A PRELIMINARY REPORT FROM [facility] [employer] DATE OF SERVICE: 2017-04-19 01:57:32 IMAGES: [id number] EXAM: CT HEAD WITHOUT CONTRAST No acute brain parenchymal abnormality. No hemorrhage, mass or acute territorial infarct. Chronic infarct left caudate nucleus versus asymmetrically enlarged frontal horn left lateral ventricle. Essentially clear visualized paranasal sinuses. Visualized mastoid air cells clear. <Lena Augustin - Last Filed: 04/19/17 03:29> *DC/Admit/Observation/Transfer <Joseph Jenkins - Last Filed: 04/19/17 03:23> - Attestations Scribe Attestion: 04/19/17 01:37 Documentation prepared by Lena Augustin, acting as biomedical engineering technologist for Joseph Jenkins MD/DO. <Lena Augustin - Last Filed: 04/19/17 03:29> Diagnosis at time of Disposition: Chronic vertigo, Chest pain - Discharge Dispostion Disposition: HOME Condition at time of disposition: Stable - Prescriptions Prescriptions: Meclizine HCl [Antivert -] 25 mg PO QID PRN #30 tablet PRN Reason: verti - Referrals Referrals: Huseyin Dumas MD [Staff Physician] - - Patient Instructions Printed Discharge Instructions: DI for Vertigo, DI for Chest Pain Additional Instructions: Please follow up with your primary care and the recreation superintendent referred to you her in the ER. Take medication as directed for dizziness. REturn if any problems
[2017-04-19 01:03] VITALS: BP 98/60; PULSE 59; TEMP 98.1; BMI 28.8
[2017-04-19 01:54] LABS: BASO % 0.2 % (0-2.0); EOS % 0.5 % (0-4.5); LYMPH # 1.7; MCH 28.1 pg (25.7-33.7); MCHC 32.7 g/dl (32.0-36.0); MEAN CELL VOLUME 85.8 fl (80-96); MEAN PLT VOLUME 8.6 fl (7.5-11.1); MONO # 0.4 #; NEUT # 1.9 #; NEUT % 47.4 % (42.8-82.8); PLATELET COUNT 182 K/MM3 (134-434); RDW 14.4 % (11.6-15.6); WHITE BLOOD COUNT 4.1 K/mm3 (4.0-10.0)
[2017-04-19 02:29] LABS: INR 1.1 (0.82-1.09); PROTHROMBIN TIME (PATIENT) 12.4 SEC (9.98-11.88)
[2017-04-19 02:40] LABS: ALBUMIN 3.3 g/dl (3.4-5.0); ANION GAP 10 (8-16); CALCIUM 8.5 mg/dL (8.5-10.1); CO2 26 mmol/L (21-32); CREATININE 0.7 mg/dL (0.55-1.02); GLUCOSE,RANDOM 95 mg/dL (74-106); SGOT/AST 25 U/L (15-37); SGPT/ALT 34 U/L (12-78)
[2017-04-19 02:43] LABS: ALK PHOS 64 U/L (45-117); BILIRUBIN,TOTAL 0.2 mg/dL (0.2-1.0); CPK 108 IU/L (26-192); TOT PROT 5.9 g/dl (6.4-8.2); TROPONIN I < 0.02 ng/ml (0.00-0.05)
--- NOTE | 2017-04-20 11:19 | EKG ---
Test Reason : Blood Pressure : / mmHG Vent. Rate : 052 BPM Atrial Rate : 052 BPM P-R Int : 146 ms QRS Dur : 080 ms QT Int : 424 ms P-R-T Axes : 011 022 046 degrees QTc Int : 394 ms SINUS BRADYCARDIA WITH SINUS ARRHYTHMIA OTHERWISE NORMAL ECG WHEN COMPARED WITH ECG OF 21-SEP-2016 12:36, NO SIGNIFICANT CHANGE WAS FOUND Confirmed by MONTY JOHNSON MD ([id number]) on 04/20/2017 11:18:59 AM Referred By: Confirmed By:MONTY JOHNSON MD
== END 2017-04-19 05:36 | disposition home or self-care (01) ==
LOC: JER 00:03
DX: R42 Dizziness and giddiness (principal); R07.9 Chest pain, unspecified
CPT/HCPCS: 36415; 70450-TC; 71010-TC; 80053; 82550; 83735; 84484; 85025; 85610; 93005; 93010; 99283-25

== ENCOUNTER 2019-04-11 12:45 | Emergency (ER) | payer OTHER ==
[2019-04-11 12:57] VITALS: BP 128/68; PULSE 70; TEMP 97.8; BMI 27.4
--- NOTE | 2019-04-11 13:34 | PDOC ---
History of Present Illness - General Chief Complaint: Wound Stated Complaint: RT. HAND LAC. Time Seen by Provider: 04/11/19 13:34 History Source: Patient Exam Limitations: No Limitations - History of Present Illness Initial Comments: 04/11/19 13:45 CHIEF COMPLAINT: Hand injury HISTORY OF PRESENT ILLNESS: This is an otherwise healthy 68-year-old female presents for evaluation of pain in the right hand for 2 weeks after cutting the palmar aspect of her hand at the thenar eminence with a knife while cooking shellfish two weeks ago. She reports persistent pain in the area despite healing of the laceration. She has full range of motion and normal sensation in all fingertips, but reports severe pain when trying to grasp objects and when trying to flex/extend at the wrist. She has not been taking any OTC medications and has not sought prior evaluation. REVIEW OF SYSTEMS: GENERAL/CONSTITUTIONAL: No fever or chills. No weakness. No weight change. MUSCULOSKELETAL: See HPI. SKIN: No rash or easy bruising. NEUROLOGIC: No headache, vertigo, loss of consciousness, or loss of sensation. PSYCHIATRIC: No depression or anxiety. ENDOCRINE: No increased thirst. No abnormal weight change. HEMATOLOGIC/LYMPHATIC: No anemia, easy bleeding, or history of blood clots. ALLERGIC/IMMUNOLOGIC: No hives or skin allergy. No latex allergy. PHYSICAL EXAM: GENERAL: The patient is awake, alert, and fully oriented, in no acute distress. EXTREMITIES: Well-approximated linear laceration 3cm in length at thenar eminence. No drainage. No surrounding erythema or discharge. Mild swelling and tenderness. Full ROM of fingers. Some pain with closing fist. Exquisite pain with flexing/extending at wrist. NEUROLOGICAL: Normal speech, normal gait. CN II-XII grossly intact. PSYCH: Normal mood, normal affect. SKIN: Warm, dry, normal turgor, no rashes or lesions noted. 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.) CVA: No COPD: No CHF: No Dementia: No Diabetes: No GI Disorders: No Disorders: No HTN: No Hypercholesterolemia: No Liver Disease: No Seizures: No Thyroid Disease: No - Surgical History Abdominal Surgery: Yes (hernia repair) Appendectomy: Yes Cardiac Surgery: No Cholecystectomy: Yes Lung Surgery: No Neurologic Surgery: No Orthopedic Surgery: No - Immunization History Immunization Up to Date: Yes - Psycho Social/Smoking Cessation Hx Smoking History: Former smoker Have you smoked in the past 12 months: No If you are a former smoker, when did you quit?: 1985 Information on smoking cessation initiated: No Hx Alcohol Use: No Drug/Substance Use Hx: No Substance Use Type: None Hx Substance Use Treatment: No *Physical Exam - Vital Signs Last Vital Signs Temp Pulse Resp BP Pulse Ox 97.8 F 70 18 128/68 99 04/11/19 12:52 04/11/19 12:52 04/11/19 12:52 04/11/19 12:52 04/11/19 12:52 Medical Decision Making - Medical Decision Making 04/11/19 14:14 A/P: 68-year-old female with 2-week-old laceration to hand with shellfish- contaminated knife. Persistent pain limiting ROM of hand. No evidence of tenosynovitis. -Hand xray -Doxyclycline (to cover Vibrio, PCN anaphylaxis so reluctant to use cephalosporin) -Tetanus is up-to-date -Hand surgery referral 04/11/19 14:24 X-ray: no foreign body or soft tissue swelling. There may be a soft tissue injury by the 2nd MCP joint. Importance of following up with hand surgery promptly for further evaluation and possibly further imaging discussed. Return precautions reviewed. Discharge - Discharge Information Problems reviewed: No Clinical Impression/Diagnosis: Hand injury Condition: Stable Disposition: HOME - Admission No - Additional Discharge Information Prescriptions: Doxycycline Hyclate 100 mg PO BID #20 capsule Ibuprofen [Motrin -] 600 mg PO QID #30 tablet - Follow up/Referral Referrals: Demar Issa MD [Staff Physician] - 2 Days (Hand surgeon) - Patient Discharge Instructions Patient Printed Discharge Instructions: DI for Wound Infection Additional Instructions: -Keep the wound clean, dry, and covered -Take doxycycline as prescribed for possible wound infection -Take ibuprofen as needed for pain and swelling -It is important that you follow up with the hand surgeon as soon as possible for further evaluation and possibly further imaging -Return here for worsening pain or signs of infection (redness, worsening swelling, fever) - Post Discharge Activity Work/Back to School Note: Back to Work
[2019-04-11] MEDS ORDERED: DOXYCYCLINE HYCLATE 100 MG CAPSULE PO ONE (13:44)
== END 2019-04-11 15:01 | disposition home or self-care (01) ==
LOC: JER 12:45
DX: S61.411S Laceration without foreign body of right hand, sequela (principal); S69.81XS Other specified injuries of right wrist, hand and finger(s), sequela; W26.0XXS Contact with knife, sequela; Z88.0 Allergy status to penicillin; Z88.6 Allergy status to analgesic agent; Z88.8 Allergy status to other drugs, medicaments and biological substances; Z91.048 Other nonmedicinal substance allergy status
CPT/HCPCS: 73130-TC-RT-FY; 99281-25

== ENCOUNTER 2019-11-19 09:12 | Emergency (ER) | payer OTHER ==
[2019-11-19 09:17] VITALS: BP 125/84; PULSE 77; TEMP 98.2
--- NOTE | 2019-11-19 10:09 | PDOC ---
History of Present Illness - General Chief Complaint: Sore Throat Stated Complaint: SORE THROAT Time Seen by Provider: 11/19/19 09:32 History Source: Patient Exam Limitations: Clinical Condition - History of Present Illness Initial Comments: 11/19/19 10:06 Patient with no significant past medical history present with complaint of 3 months history of nasal congestion, sinus congestion, postnasal drip, sore throat, runny nose and intermittent headaches. Patient also reported intermittent cough but no cough at this time. Denies shortness of breath, chest pain, palpitation, fever, chills, nausea, vomiting, abdominal pain, weakness. Patient reported history of chronic sinusitis and family history of tonsillitis. Patient reported using [id number] cold and sinus medication with minimal improvement. Denies recent travel or sick contacts. Patient reported having COVID test done a month ago with negative results. Denies any other symptoms Is this a multiple visit Asthma Patient?: No Timing/Duration: other (3 months) Past History - Medical History Allergies/Adverse Reactions: Allergies Allergy/AdvReac Type Severity Reaction Status Date / Time clonazepam [From Klonopin] Allergy Verified 11/19/19 09:15 codeine Allergy Verified 11/19/19 09:15 Penicillins Allergy Verified 11/19/19 09:15 perfume Allergy Verified 11/19/19 09:15 Home Medications: Ambulatory Orders Azithromycin [Zithromax Tri-Sudhir (3 DAYS) -] 500 mg PO DAILY #3 tablet 11/19/19 Ipratropium [place] 2 spray NS BID PRN #1 spray 11/19/19 Montelukast Na [Singulair -] 10 mg PO DAILY #10 tablet 11/19/19 Anemia: No Asthma: No Cancer: No 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.) CVA: No COPD: No CHF: No Dementia: No Diabetes: No GI Disorders: No Disorders: No HTN: No Hypercholesterolemia: No Liver Disease: No Seizures: No Thyroid Disease: No - Surgical History Abdominal Surgery: Yes (hernia repair) Appendectomy: Yes Cardiac Surgery: No Cholecystectomy: Yes Lung Surgery: No Neurologic Surgery: No Orthopedic Surgery: No - Immunization History Immunization Up to Date: Yes - Psycho-Social/Smoking History Smoking History: Never smoked Have you smoked in the past 12 months: No If you are a former smoker, when did you quit?: 1985 - Substance Abuse Hx (Audit-C & DAST Scrn) How often the patient has a drink containing alcohol: Never Score: In Men: 4 or > Positive; In Women: 3 or > Positive: 0 Screen Result (Pos requires Nsg. Audit-10AR): Negative In the last yr the pt used illegal drug/Rx for NonMed reason: No Score: Yes response is considered Positive: 0 Screen Result (Positive result requires Nsg. DAST-10): Negative Review of Systems - Review of Systems Able to Perform ROS?: Yes Is the patient limited Mohawk proficient: No Constitutional: No: Chills, Fever, Malaise HEENTM: Yes: Symptoms Reported, See HPI, Nose Congestion, Throat Pain. No: Eye Pain, Blurred Vision, Tearing, Recent change in vision, Double Vision, Cataracts, Ear Pain, Ocular Prothesis, Ear Discharge, Nose Pain, Tinnitus, Nose Bleeding, Hearing Loss, Throat Swelling, Mouth Pain, Dental Problems, Difficulty Swallowing, Mouth Swelling, Other Respiratory: Yes: Symptoms reported, See HPI, Cough (intermittent). No: Orthopnea, Shortness of Breath, SOB with Exertion, SOB at Rest, Stridor, Wheezing, Productive cough, Hemoptysis, Other Cardiac (ROS): No: Symptoms Reported, See HPI, Chest Pain, Edema, Irregular Heart Rate, Lightheadedness, Palpitations, Syncope, Chest Tightness, Other ABD/GI: No: Symptoms Reported, Nausea, Vomiting All Other Systems: Reviewed and Negative *Physical Exam - Vital Signs Last Vital Signs Temp Pulse Resp BP Pulse Ox 98.2 F 77 18 125/84 99 11/19/19 09:15 11/19/19 09:15 11/19/19 09:15 11/19/19 09:15 11/19/19 09:15 - Physical Exam 11/19/19 10:14 GENERAL: Well developed, well nourished. Awake and alert. No acute distress. HEENT: Bilateral nasal congestion with mild bilateral maxillary sinus tenderness. Normocephalic, atraumatic. PERRLA, EOMI. No conjunctival pallor. Sclera are non-icteric. Moist mucous membranes. Oropharynx is clear. NECK: Supple. Full ROM. CARDIOVASCULAR: Regular rate and rhythm. No murmurs, rubs, or gallops. Distal pulses are 2+ and symmetric. PULMONARY: No evidence of respiratory distress. Lungs clear to auscultation bilaterally. No wheezing, rales or rhonchi. MUSCULOSKELETAL Normal range of motion at all joints. SKIN: Warm and dry. Normal capillary refill. No rashes. No jaundice. NEUROLOGICAL: Alert, awake, appropriate. Gait is normal without ataxia. PSYCHIATRIC: Cooperative. Good eye contact. Appropriate mood General Appearance: Yes: Nourished, Appropriately Dressed. No: Apparent Distress Medical Decision Making - Medical Decision Making 11/19/19 10:07 Patient with no significant past medical history present with complaint of 3 months history of nasal congestion, sinus congestion, postnasal drip, sore throat, runny nose and intermittent headaches. Patient also reported intermittent cough but no cough at this time. Denies shortness of breath, chest pain, palpitation, fever, chills, nausea, vomiting, abdominal pain, weakness. Patient reported history of chronic sinusitis and family history of tonsillitis. Patient reported using [id number] cold and sinus medication with minimal improvement. Denies recent travel or sick contacts. Patient reported having COVID test done a month ago with negative results. Denies any other symptoms Exam significant for bilateral nasal congestion with mild maxillary sinus tenderness. No pharyngeal erythema or exudate. Patient afebrile in no acute distress. Lungs clear to auscultation bilateral and normal cardio exam. 11/19/19 10:15 Rapid strep negative. Patient symptoms likely sinusitis and stable for discharge on Atrovent nasal spray and Zithromax antibiotic for sinusitis with ENT follow-up. Patient advised to increase fluid intake and follow-up with ENT and PCP. Patient clinically stable for discharge Discharge - Discharge Information Problems reviewed: Yes Clinical Impression/Diagnosis: Nasal sinus congestion Acute maxillary sinusitis Qualifiers: Recurrence: recurrent Qualified Code(s): J01.01 - Acute recurrent maxillary sinusitis Pharyngitis Qualifiers: Pharyngitis/tonsillitis etiology: unspecified etiology Qualified Code(s): J02.9 - Acute pharyngitis, unspecified Condition: Stable Disposition: HOME - Admission No - Additional Discharge Information Prescriptions: Ipratropium [place] 2 spray NS BID PRN #1 spray PRN Reason: nasal congestion Montelukast Na [Singulair -] 10 mg PO DAILY #10 tablet Azithromycin [Zithromax Tri-Sudhir (3 DAYS) -] 500 mg PO DAILY #3 tablet - Follow up/Referral Referrals: Kelsey Rg [Primary Care Provider] - Tee Fierro MD [Staff Physician] - - Patient Discharge Instructions Patient Printed Discharge Instructions: DI for Pharyngitis/Tonsillopharyngitis -- Adult, DI for Sinusitis Additional Instructions: Your strep test is negative. Your symptoms likely from sinus infection causing postnasal drip which is irritating the throat. Take prescribed medication as prescribed. Increase fluid intake. Follow-up referred ENT Dr. Kumar if symptoms persist for more than 5 days - Post Discharge Activity
== END 2019-11-19 10:33 | disposition home or self-care (01) ==
LOC: JERFT 09:12
DX: J01.01 Acute recurrent maxillary sinusitis (principal); J02.9 Acute pharyngitis, unspecified
CPT/HCPCS: 87070; 87077; 87880; 99282-25

== ENCOUNTER 2020-10-18 18:49 | Emergency (ER) | payer OTHER ==
[2020-10-18 18:56] VITALS: BP 117/61; PULSE 86; TEMP 98; BMI 34.3
[2020-10-18] MEDS ORDERED: BACITRACIN 15 GM TUBE TOPICAL OINTMENT TP ONE (20:21)
[2020-10-18] MEDS ORDERED: BACITRACIN 15 GM TUBE TOPICAL OINTMENT ONE (20:41)
== END 2020-10-18 21:00 | disposition home or self-care (01) ==
LOC: JERFT 18:49
DX: M25.561 Pain in right knee (principal); S80.211A Abrasion, right knee, initial encounter
CPT/HCPCS: 73562-TC-RT-FY; 99283-25

== ENCOUNTER 2021-12-13 08:51 | Emergency (ER) | payer OTHER ==
[2021-12-13 09:00] VITALS: BP 162/82; PULSE 77; RESP 18; TEMP 98.2; BMI 35.2
[2021-12-13] MEDS ORDERED: ONDANSETRON 4 MG/2 ML VIAL IVPUSH ONE (09:33)
[2021-12-13] MEDS ORDERED: SODIUM CHLORIDE 1,000 ML IV STA (09:33)
[2021-12-13] MEDS ORDERED: ONDANSETRON 4 MG/2 ML VIAL ONE (09:39)
[2021-12-13 10:12] LABS: HEMATOCRIT 41.1 % (32.4-45.2); HEMOGLOBIN 13.5 GM/dL (10.7-15.3); LYMPH % 39.6 % (8-40); MCH 28.3 pg (25.7-33.7); MCHC 32.9 g/dl (32.0-36.0); MEAN CELL VOLUME 86.1 fl (80-96); MEAN PLT VOLUME 8.8 fl (7.5-11.1); MONO % 11.2 % (3.8-10.2); NEUT % 47.2 % (42.8-82.8); PLATELET COUNT 209 10^3/uL (134-434); RBC 4.77 M/mm3 (3.60-5.2); WHITE BLOOD COUNT 5.3 K/mm3 (4.0-10.0)
[2021-12-13 10:35] LABS: CALCIUM 8.6 mg/dL (8.5-10.1)
[2021-12-13 10:36] LABS: ALBUMIN 3.4 g/dl (3.4-5.0); BLOOD UREA NITROGEN 23.9 mg/dL (7-18)
[2021-12-13 10:39] LABS: CREATININE 0.8 mg/dL (0.55-1.3)
[2021-12-13 10:40] LABS: BILIRUBIN,TOTAL 0.2 mg/dL (0.2-1); TOT PROT 6.4 g/dl (6.4-8.2)
[2021-12-13 12:11] LABS: EPI CELLS >36 /uL (0-25.1); HYALINE CASTS 3 /uL (0-3.1); PH,URINE 5.5 (5.0-8.0); URINE APPEARANCE CLOUDY; URINE BACTERIA 2241 /uL (0-1359); URINE BILIRUBIN NEGATIVE (NEGATIVE); URINE COLOR YELLOW; URINE GLUCOSE (UA) NEGATIVE (NEGATIVE); URINE KETONE NEGATIVE (NEGATIVE); URINE LEUK ESTERASE 3+ (NEGATIVE); URINE NITRITE NEGATIVE (NEGATIVE); URINE PROTEIN TRACE (NEGATIVE); URINE RBC 34 /uL (0-23.9); URINE UROBILINOGEN 0.2 mg/dL (0.2-1.0); URINE WBC 615 /uL (0-25.8)
== END 2021-12-13 12:49 | disposition home or self-care (01) ==
LOC: JER 08:51 → JERFT 08:51
PROC: 3E033NZ Introduction of Analgesics, Hypnotics, Sedatives into Peripheral Vein, Percutaneous Approach (ICD-10-PCS; principal; 2021-12-13)
PROC: 3E0337Z Introduction of Electrolytic and Water Balance Substance into Peripheral Vein, Percutaneous Approach (ICD-10-PCS; 2021-12-13)
DX: R11.0 Nausea (principal); R09.81 Nasal congestion; R05.3 Chronic cough
CPT/HCPCS: 0241U-QW; 36415; 80053; 81003; 85025; 87086; 93005; 93010; 99284-25

== ENCOUNTER 2022-05-30 08:42 | Inpatient (IN) | payer OTHER ==
[2022-05-30] MEDS ORDERED: ALBUTEROL SO4 2.5/IPRATROPIUM 0.5 INH SOL 3 ML VIAL.NEB. NEB ONE ×2 (09:24→09:51)
[2022-05-30] MEDS: DEXTROSE 5%-LACTATED RINGERS 1,000 ML IV SCH ×2 (09:56→21:28)
[2022-05-30 10:05] LABS: BASO % 0.1 % (0-2.0); EOS % 0.7 % (0-4.5); HEMATOCRIT 37.7 % (32.4-45.2); HEMOGLOBIN 12.3 GM/dL (10.7-15.3); LYMPH % 44.7 % (8-40); MCH 28.3 pg (25.7-33.7); MCHC 32.7 g/dl (32.0-36.0); MEAN CELL VOLUME 86.5 fl (80-96); MEAN PLT VOLUME 8.4 fl (7.5-11.1); MONO % 13.5 % (3.8-10.2); PLATELET COUNT 200 10^3/uL (134-434); RBC 4.36 M/mm3 (3.60-5.2); RDW 14.9 % (11.6-15.6); WHITE BLOOD COUNT 5.3 K/mm3 (4.0-10.0)
[2022-05-30 10:12] LABS: INR 1.09 (0.83-1.09); PROTHROMBIN TIME (PATIENT) 12.6 SEC (9.7-13.0)
[2022-05-30 10:28] LABS: ALBUMIN 3.3 g/dl (3.4-5.0); BLOOD UREA NITROGEN 18.4 mg/dL (7-18); CALCIUM 8.3 mg/dL (8.5-10.1)
[2022-05-30 10:31] LABS: CREATININE 0.7 mg/dL (0.55-1.3)
[2022-05-30 10:33] LABS: BILIRUBIN,TOTAL 0.2 mg/dL (0.2-1); TOT PROT 6.4 g/dl (6.4-8.2)
[2022-05-30] MEDS ORDERED: DEXAMETHASONE SOD PHOSPHATE 10 MG/1 ML VIAL IVPUSH ONE (11:00)
[2022-05-30] MEDS ORDERED: DEXAMETHASONE SOD PHOSPHATE 4 MG/1 ML VIAL ONE (11:09)
[2022-05-30] MEDS ORDERED: ALBUTEROL SO4 HFA INHALER IH PRN ×2 (11:52→16:19)
[2022-05-30 15:08] VITALS: BMI 44.1
[2022-05-30 19:12] VITALS: RESP 18
[2022-05-30] MEDS ORDERED: ACETAMINOPHEN 325 MG TABLET (FP) PO ONE (20:45)
[2022-05-30] MEDS: MONTELUKAST NA 10 MG TABLET PO SCH (21:26)
[2022-05-30] MEDS: HEPARIN NA (PORCINE) 5,000 UNITS/ML 1ML VIAL SQ SCH (21:26)
[2022-05-30] MEDS: BUDESONIDE/FORMETEROL FUMARATE 80/4.5 mcg INHALER IH SCH (21:26)
[2022-05-31] MEDS: CLOPIDOGREL BISULFATE 75 MG TABLET (FP) PO SCH (10:37)
[2022-05-31] MEDS: BUDESONIDE/FORMETEROL FUMARATE 80/4.5 mcg INHALER IH SCH ×2 (10:37→21:32)
[2022-05-31] MEDS: DIVALPROEX SODIUM 500 MG TABLET E.C. PO SCH ×2 (10:37→21:31)
[2022-05-31] MEDS: DEXAMETHASONE SOD PHOSPHATE 10 MG/1 ML VIAL IVPUSH SCH ×2 (10:37→12:26)
[2022-05-31] MEDS: SERTRALINE HCL 25 MG TABLET (FP) PO SCH (10:37)
[2022-05-31] MEDS: HEPARIN NA (PORCINE) 5,000 UNITS/ML 1ML VIAL SQ SCH ×2 (10:37→21:31)
[2022-05-31] MEDS: DEXTROSE 5%-LACTATED RINGERS 1,000 ML IV SCH (13:29)
[2022-05-31 15:19] LABS: BLOOD UREA NITROGEN 17.3 mg/dL (7-18); CALCIUM 8.2 mg/dL (8.5-10.1)
[2022-05-31 15:20] LABS: ALBUMIN 3.2 g/dl (3.4-5.0)
[2022-05-31 15:22] LABS: BILIRUBIN,DIRECT 0.1 mg/dL (0.0-0.2); CREATININE 0.7 mg/dL (0.55-1.3)
[2022-05-31 15:24] LABS: BILIRUBIN,TOTAL 0.2 mg/dL (0.2-1); TOT PROT 6.2 g/dl (6.4-8.2)
[2022-05-31] MEDS: CEFTRIAXONE 2 GM in DEXTROSE 5%-WATER 100 ML IVPB SCH (15:37)
[2022-05-31] MEDS: AZITHROMYCIN IVPB 500 MG/250 ML BAG IVPB SCH ×2 (16:09→16:48)
[2022-05-31 17:09] LABS: BASO % 0.1 % (0-2.0); EOS % 0.2 % (0-4.5); HEMATOCRIT 33.4 % (32.4-45.2); HEMOGLOBIN 11.1 GM/dL (10.7-15.3); LYMPH % 49.2 % (8-40); MCH 28.5 pg (25.7-33.7); MCHC 33.2 g/dl (32.0-36.0); MEAN PLT VOLUME 8.4 fl (7.5-11.1); MONO % 9.3 % (3.8-10.2); NEUT % 41.2 % (42.8-82.8); PLATELET COUNT 183 10^3/uL (134-434); RBC 3.88 M/mm3 (3.60-5.2); RDW 15.5 % (11.6-15.6)
[2022-05-31 21:06] LABS: BLOOD UREA NITROGEN 18.4 mg/dL (7-18); CALCIUM 8.1 mg/dL (8.5-10.1)
[2022-05-31 21:09] LABS: BILIRUBIN,DIRECT 0.1 mg/dL (0.0-0.2); CREATININE 0.7 mg/dL (0.55-1.3)
[2022-05-31 21:11] LABS: BILIRUBIN,TOTAL 0.2 mg/dL (0.2-1); TOT PROT 5.9 g/dl (6.4-8.2)
[2022-05-31] MEDS: MONTELUKAST NA 10 MG TABLET PO SCH (21:31)
[2022-06-01] MEDS ORDERED: ACETAMINOPHEN 325 MG TABLET (FP) ONE (00:37)
[2022-06-01] MEDS: ACETAMINOPHEN 325 MG TABLET (FP) PO PRN ×2 (00:42→10:00)
[2022-06-01] MEDS: DEXTROSE 5%-LACTATED RINGERS 1,000 ML IV SCH ×2 (02:43→09:45)
[2022-06-01] MEDS: DEXAMETHASONE SOD PHOSPHATE 10 MG/1 ML VIAL IVPUSH SCH (09:40)
[2022-06-01] MEDS: DIVALPROEX SODIUM 500 MG TABLET E.C. PO SCH ×2 (09:41→22:52)
[2022-06-01] MEDS: HEPARIN NA (PORCINE) 5,000 UNITS/ML 1ML VIAL SQ SCH ×2 (09:41→22:52)
[2022-06-01 09:42] LABS: BASO % 0.1 % (0-2.0); EOS % 0.4 % (0-4.5); HEMATOCRIT 35.1 % (32.4-45.2); HEMOGLOBIN 11.5 GM/dL (10.7-15.3); MCH 28.2 pg (25.7-33.7); MCHC 32.8 g/dl (32.0-36.0); MEAN CELL VOLUME 86.1 fl (80-96); MEAN PLT VOLUME 8.3 fl (7.5-11.1); MONO % 9.9 % (3.8-10.2); NEUT % 30.6 % (42.8-82.8); PLATELET COUNT 184 10^3/uL (134-434); RBC 4.07 M/mm3 (3.60-5.2); RDW 15.3 % (11.6-15.6); WHITE BLOOD COUNT 5.6 K/mm3 (4.0-10.0)
[2022-06-01] MEDS: CLOPIDOGREL BISULFATE 75 MG TABLET (FP) PO SCH (09:42)
[2022-06-01] MEDS: CEFTRIAXONE 2 GM in DEXTROSE 5%-WATER 100 ML IVPB SCH (09:42)
[2022-06-01] MEDS: SERTRALINE HCL 25 MG TABLET (FP) PO SCH (09:42)
[2022-06-01] MEDS: BUDESONIDE/FORMETEROL FUMARATE 80/4.5 mcg INHALER IH SCH ×2 (10:00→22:59)
[2022-06-01 10:05] LABS: CALCIUM 8.2 mg/dL (8.5-10.1)
[2022-06-01 10:06] LABS: ALBUMIN 2.9 g/dl (3.4-5.0); BLOOD UREA NITROGEN 10.7 mg/dL (7-18)
[2022-06-01 10:09] LABS: CREATININE 0.6 mg/dL (0.55-1.3)
[2022-06-01 10:10] LABS: BILIRUBIN,TOTAL 0.5 mg/dL (0.2-1); TOT PROT 5.7 g/dl (6.4-8.2)
[2022-06-01] MEDS: AZITHROMYCIN IVPB 500 MG/250 ML BAG IVPB SCH (10:47)
[2022-06-01] MEDS: MONTELUKAST NA 10 MG TABLET PO SCH (22:52)
[2022-06-02] MEDS: ACETAMINOPHEN 325 MG TABLET (FP) PO PRN ×2 (08:49→21:53)
[2022-06-02] MEDS: CLOPIDOGREL BISULFATE 75 MG TABLET (FP) PO SCH (09:38)
[2022-06-02] MEDS: DIVALPROEX SODIUM 500 MG TABLET E.C. PO SCH ×2 (09:38→21:53)
[2022-06-02] MEDS: DEXAMETHASONE SOD PHOSPHATE 10 MG/1 ML VIAL IVPUSH SCH (09:38)
[2022-06-02] MEDS: CEFTRIAXONE 2 GM in DEXTROSE 5%-WATER 100 ML IVPB SCH (09:38)
[2022-06-02] MEDS: HEPARIN NA (PORCINE) 5,000 UNITS/ML 1ML VIAL SQ SCH ×2 (09:40→21:52)
[2022-06-02] MEDS: BUDESONIDE/FORMETEROL FUMARATE 80/4.5 mcg INHALER IH SCH ×2 (09:41→21:53)
[2022-06-02] MEDS: SERTRALINE HCL 25 MG TABLET (FP) PO SCH (09:41)
[2022-06-02 10:40] LABS: HEMATOCRIT 35.9 % (32.4-45.2); HEMOGLOBIN 12.2 GM/dL (10.7-15.3); MCH 28.6 pg (25.7-33.7); MCHC 33.9 g/dl (32.0-36.0); MEAN CELL VOLUME 84.6 fl (80-96); MEAN PLT VOLUME 8.1 fl (7.5-11.1); PLATELET COUNT 220 10^3/uL (134-434); RBC 4.25 M/mm3 (3.60-5.2); WHITE BLOOD COUNT 6.6 K/mm3 (4.0-10.0)
[2022-06-02] MEDS: AZITHROMYCIN IVPB 500 MG/250 ML BAG IVPB SCH (10:54)
[2022-06-02 10:57] LABS: BLOOD UREA NITROGEN 15.6 mg/dL (7-18); CALCIUM 8.7 mg/dL (8.5-10.1)
[2022-06-02 11:00] LABS: CREATININE 0.6 mg/dL (0.55-1.3)
[2022-06-02 11:02] LABS: TOT PROT 6.1 g/dl (6.4-8.2)
[2022-06-02 11:05] LABS: BILIRUBIN,TOTAL 0.4 mg/dL (0.2-1)
[2022-06-02 11:55] LABS: ANISOCYTOSIS 0; MACROCYTOSIS 0
[2022-06-02] MEDS: MONTELUKAST NA 10 MG TABLET PO SCH (21:53)
[2022-06-03] MEDS: DEXAMETHASONE SOD PHOSPHATE 10 MG/1 ML VIAL IVPUSH SCH (09:44)
[2022-06-03] MEDS: HEPARIN NA (PORCINE) 5,000 UNITS/ML 1ML VIAL SQ SCH ×2 (09:44→21:25)
[2022-06-03] MEDS: CLOPIDOGREL BISULFATE 75 MG TABLET (FP) PO SCH (09:44)
[2022-06-03] MEDS: SERTRALINE HCL 25 MG TABLET (FP) PO SCH (09:44)
[2022-06-03] MEDS: DIVALPROEX SODIUM 500 MG TABLET E.C. PO SCH ×2 (09:44→21:26)
[2022-06-03] MEDS: BUDESONIDE/FORMETEROL FUMARATE 80/4.5 mcg INHALER IH SCH ×2 (09:46→21:26)
[2022-06-03 11:08] LABS: CALCIUM 8.7 mg/dL (8.5-10.1)
[2022-06-03 11:09] LABS: ALBUMIN 3.2 g/dl (3.4-5.0); BLOOD UREA NITROGEN 22.8 mg/dL (7-18)
[2022-06-03 11:11] LABS: CREATININE 0.6 mg/dL (0.55-1.3)
[2022-06-03 11:13] LABS: BILIRUBIN,TOTAL 0.4 mg/dL (0.2-1); TOT PROT 6.4 g/dl (6.4-8.2)
[2022-06-03] MEDS: ACETAMINOPHEN 325 MG TABLET (FP) PO PRN (11:33)
[2022-06-03] MEDS: MONTELUKAST NA 10 MG TABLET PO SCH (21:25)
[2022-06-04] MEDS: DIVALPROEX SODIUM 500 MG TABLET E.C. PO SCH (10:25)
[2022-06-04] MEDS: DEXAMETHASONE SOD PHOSPHATE 10 MG/1 ML VIAL IVPUSH SCH (10:25)
[2022-06-04] MEDS: CLOPIDOGREL BISULFATE 75 MG TABLET (FP) PO SCH (10:25)
[2022-06-04] MEDS: HEPARIN NA (PORCINE) 5,000 UNITS/ML 1ML VIAL SQ SCH (10:25)
[2022-06-04] MEDS: SERTRALINE HCL 25 MG TABLET (FP) PO SCH (10:25)
[2022-06-04] MEDS: BUDESONIDE/FORMETEROL FUMARATE 80/4.5 mcg INHALER IH SCH (10:26)
[2022-06-04 13:03] VITALS: BP 130/74; PULSE 60; TEMP 98
== END 2022-06-04 14:17 | disposition home or self-care (01) | DRG 178 ==
LOC: JER 08:42 → JERBED 12:06 → J5S 13:12
PROVIDERS: ADMIT Internal Medicine; ATTEND Internal Medicine
DX: U07.1 COVID-19 (principal); Z68.41 Body mass index [BMI] 40.0-44.9, adult; I25.10 Atherosclerotic heart disease of native coronary artery without angina pectoris; G40.909 Epilepsy, unspecified, not intractable, without status epilepticus; E66.01 Morbid (severe) obesity due to excess calories; I73.9 Peripheral vascular disease, unspecified; R79.89 Other specified abnormal findings of blood chemistry; R09.02 Hypoxemia; Z86.73 Personal history of transient ischemic attack (TIA), and cerebral infarction without residual deficits; K76.0 Fatty (change of) liver, not elsewhere classified; Z87.891 Personal history of nicotine dependence; J42 Unspecified chronic bronchitis
CPT/HCPCS: 0241U-QW; 36415; 71045-TC-FY; 76705-TC; 80048; 80053; 80061; 80076; 82550; 83036; 83880; 84439; 84443; 84484; 85025; 85610; 86140; 86704; 86708; 86803; 87040; 87340; 87517; 93005; 93010; 94761; 99285-25; J1100; J1644

== ENCOUNTER 2022-07-15 12:25 | Emergency (ER) | payer OTHER ==
[2022-07-15 13:02] VITALS: BMI 42.9
[2022-07-15] MEDS ORDERED: MECLIZINE HCL 25 MG TABLET (FP) PO ONE (13:27)
[2022-07-15] MEDS ORDERED: SODIUM CHLORIDE 0.9% 500 ML INFUS.BAG IV ONE (13:27)
[2022-07-15] MEDS ORDERED: ONDANSETRON 4 MG/2 ML VIAL IVPUSH ONE (13:32)
[2022-07-15] MEDS ORDERED: MECLIZINE HCL 25 MG TABLET (FP) ONE (13:36)
[2022-07-15] MEDS ORDERED: ONDANSETRON 4 MG/2 ML VIAL ONE (13:36)
[2022-07-15 14:03] LABS: BASO % 0.3 % (0-2.0); EOS % 2.2 % (0-4.5); HEMATOCRIT 40.2 % (32.4-45.2); HEMOGLOBIN 13.5 GM/dL (10.7-15.3); LYMPH % 42.4 % (8-40); MCH 28.2 pg (25.7-33.7); MCHC 33.6 g/dl (32.0-36.0); MEAN PLT VOLUME 8.7 fl (7.5-11.1); MONO % 9.2 % (3.8-10.2); NEUT % 45.9 % (42.8-82.8); PLATELET COUNT 195 10^3/uL (134-434); RBC 4.79 M/mm3 (3.60-5.2); RDW 15.3 % (11.6-15.6)
[2022-07-15 14:16] LABS: CALCIUM 8.9 mg/dL (8.5-10.1)
[2022-07-15 14:18] LABS: ALBUMIN 3.6 g/dl (3.4-5.0); BLOOD UREA NITROGEN 24.7 mg/dL (7-18); MAGNESIUM 1.8 mg/dL (1.8-2.4)
[2022-07-15 14:21] LABS: BILIRUBIN,TOTAL 0.4 mg/dL (0.2-1); CREATININE 0.7 mg/dL (0.55-1.3)
[2022-07-15 14:23] LABS: TOT PROT 6.8 g/dl (6.4-8.2)
[2022-07-15 15:33] VITALS: BP 108/58; PULSE 63; RESP 18; TEMP 98
== END 2022-07-15 15:56 | disposition home or self-care (01) ==
LOC: JER 12:25
DX: R42 Dizziness and giddiness (principal); Z20.822 Contact with and (suspected) exposure to COVID-19
CPT/HCPCS: 0241U-QW; 36415; 70450-TC; 71045-TC-FY; 80053; 83735; 85025; 93005; 93010; 99285-25

== ENCOUNTER 2022-09-07 13:43 | Inpatient (IN) | payer OTHER ==
[2022-09-07 13:53] VITALS: BMI 42.0
[2022-09-07 14:54] LABS: BASO % 0.1 % (0-2.0); HEMOGLOBIN 13.2 GM/dL (10.7-15.3); LYMPH % 40.8 % (8-40); MCH 27.8 pg (25.7-33.7); MEAN CELL VOLUME 84.2 fl (80-96); MONO % 7.6 % (3.8-10.2); NEUT % 50.5 % (42.8-82.8); PLATELET COUNT 265 10^3/uL (134-434); RBC 4.75 M/mm3 (3.60-5.2); RDW 14.9 % (11.6-15.6); WHITE BLOOD COUNT 7.2 K/mm3 (4.0-10.0)
[2022-09-07 15:10] LABS: INR 1.15 (0.83-1.09); PROTHROMBIN TIME (PATIENT) 13.3 SEC (9.7-13.0)
[2022-09-07 15:13] LABS: ACTIVATED PTT 29.2 SECONDS (25.2-36.5)
[2022-09-07 15:14] LABS: POTASSIUM 4.3 mmol/L (3.5-5.1)
[2022-09-07 15:17] LABS: CALCIUM 9.6 mg/dL (8.5-10.1)
[2022-09-07 15:18] LABS: ALBUMIN 3.5 g/dl (3.4-5.0); BLOOD UREA NITROGEN 16.6 mg/dL (7-18); MAGNESIUM 2.1 mg/dL (1.8-2.4)
[2022-09-07 15:21] LABS: CREATININE 0.7 mg/dL (0.55-1.3)
[2022-09-07 15:22] LABS: BILIRUBIN,TOTAL 0.7 mg/dL (0.2-1); TOT PROT 6.8 g/dl (6.4-8.2)
[2022-09-07] MEDS ORDERED: ACETAMINOPHEN 1000 MG/100 ML BAG IVPB ONE (15:22)
[2022-09-07] MEDS ORDERED: ACETAMINOPHEN INJECTION 100 ML IVPB ONE (15:35)
[2022-09-07] MEDS ORDERED: ACETAMINOPHEN 325 MG TABLET (FP) PO PRN (15:43)
[2022-09-07] MEDS ORDERED: BENZONATATE 100 MG CAPSULE PO PRN (15:43)
[2022-09-07] MEDS ORDERED: ALBUTEROL SO4 HFA INHALER IH PRN (15:43)
[2022-09-07] MEDS ORDERED: MONTELUKAST NA 10 MG TABLET PO SCH (22:00)
[2022-09-07] MEDS: BUDESONIDE/FORMETEROL FUMARATE 80/4.5 mcg INHALER IH SCH (23:20)
[2022-09-07] MEDS: DIVALPROEX SODIUM 500 MG TABLET E.C. PO SCH (23:57)
[2022-09-08 08:56] LABS: BASO % 0.4 % (0-2.0); EOS % 1.8 % (0-4.5); HEMATOCRIT 38.4 % (32.4-45.2); HEMOGLOBIN 13.2 GM/dL (10.7-15.3); LYMPH % 39.5 % (8-40); MCH 28.9 pg (25.7-33.7); MCHC 34.3 g/dl (32.0-36.0); MEAN CELL VOLUME 84.2 fl (80-96); MEAN PLT VOLUME 8.8 fl (7.5-11.1); MONO % 7.8 % (3.8-10.2); NEUT % 50.5 % (42.8-82.8); PLATELET COUNT 245 10^3/uL (134-434); RBC 4.55 M/mm3 (3.60-5.2); RDW 14.5 % (11.6-15.6); WHITE BLOOD COUNT 6.6 K/mm3 (4.0-10.0)
[2022-09-08 09:51] LABS: ALBUMIN 3.4 g/dl (3.4-5.0); BILIRUBIN,TOTAL 0.8 mg/dL (0.2-1); BLOOD UREA NITROGEN 13.9 mg/dL (7-18); CALCIUM 9.4 mg/dL (8.5-10.1); CREATININE 0.7 mg/dL (0.55-1.3); POTASSIUM 4.2 mmol/L (3.5-5.1); TOT PROT 6.7 g/dl (6.4-8.2)
[2022-09-08] MEDS: DIVALPROEX SODIUM 500 MG TABLET E.C. PO SCH ×2 (09:54→21:22)
[2022-09-08] MEDS ORDERED: SERTRALINE HCL 25 MG TABLET (FP) PO SCH (10:00)
[2022-09-08] MEDS ORDERED: ASPIRIN 81 MG CHEWABLE TABLETS PO SCH (10:00)
[2022-09-08] MEDS ORDERED: CLOPIDOGREL BISULFATE 75 MG TABLET (FP) PO SCH (10:00)
[2022-09-08] MEDS ORDERED: MECLIZINE HCL 25 MG TABLET (FP) PO SCH (10:00)
[2022-09-08] MEDS: BUDESONIDE/FORMETEROL FUMARATE 80/4.5 mcg INHALER IH SCH ×2 (10:07→21:24)
[2022-09-08] MEDS ORDERED: ALBUTEROL SO4 HFA INHALER IH PRN (18:46)
[2022-09-08] MEDS ORDERED: BENZONATATE 100 MG CAPSULE PO PRN (18:46)
[2022-09-08] MEDS: CEFTRIAXONE 2 GM in DEXTROSE 5%-WATER 100 ML IVPB SCH (20:20)
[2022-09-08] MEDS: MONTELUKAST NA 10 MG TABLET PO SCH (21:21)
[2022-09-08] MEDS: ACETAMINOPHEN 325 MG TABLET (FP) PO PRN (21:22)
[2022-09-09] MEDS: ACETAMINOPHEN 325 MG TABLET (FP) PO PRN ×3 (04:01→21:55)
[2022-09-09] MEDS: SERTRALINE HCL 25 MG TABLET (FP) PO SCH (10:09)
[2022-09-09] MEDS: ASPIRIN 81 MG CHEWABLE TABLETS PO SCH (10:09)
[2022-09-09] MEDS: DIVALPROEX SODIUM 500 MG TABLET E.C. PO SCH ×2 (10:09→21:57)
[2022-09-09] MEDS: BUDESONIDE/FORMETEROL FUMARATE 80/4.5 mcg INHALER IH SCH ×2 (10:10→21:58)
[2022-09-09] MEDS: CEFTRIAXONE 2 GM in DEXTROSE 5%-WATER 100 ML IVPB SCH (10:10)
[2022-09-09] MEDS ORDERED: MECLIZINE HCL 25 MG TABLET (FP) PO PRN (10:22)
[2022-09-09] MEDS: MONTELUKAST NA 10 MG TABLET PO SCH (21:57)
[2022-09-10] MEDS: ASPIRIN 81 MG CHEWABLE TABLETS PO SCH (10:01)
[2022-09-10] MEDS: SERTRALINE HCL 25 MG TABLET (FP) PO SCH (10:01)
[2022-09-10] MEDS: DIVALPROEX SODIUM 500 MG TABLET E.C. PO SCH ×2 (10:01→22:07)
[2022-09-10] MEDS: CLOPIDOGREL BISULFATE 75 MG TABLET (FP) PO SCH (10:02)
[2022-09-10] MEDS: CEFTRIAXONE 2 GM in DEXTROSE 5%-WATER 100 ML IVPB SCH (10:02)
[2022-09-10] MEDS: BUDESONIDE/FORMETEROL FUMARATE 80/4.5 mcg INHALER IH SCH ×2 (10:03→22:13)
[2022-09-10] MEDS: MONTELUKAST NA 10 MG TABLET PO SCH (22:07)
[2022-09-10] MEDS: ACETAMINOPHEN 325 MG TABLET (FP) PO PRN (22:10)
[2022-09-11] MEDS: ACETAMINOPHEN 325 MG TABLET (FP) PO PRN ×3 (06:29→22:59)
[2022-09-11] MEDS: SERTRALINE HCL 25 MG TABLET (FP) PO SCH (09:47)
[2022-09-11] MEDS: ASPIRIN 81 MG CHEWABLE TABLETS PO SCH (09:47)
[2022-09-11] MEDS: DIVALPROEX SODIUM 500 MG TABLET E.C. PO SCH ×2 (09:47→21:49)
[2022-09-11] MEDS: CLOPIDOGREL BISULFATE 75 MG TABLET (FP) PO SCH (09:47)
[2022-09-11] MEDS: CEFTRIAXONE 2 GM in DEXTROSE 5%-WATER 100 ML IVPB SCH (09:47)
[2022-09-11] MEDS: BUDESONIDE/FORMETEROL FUMARATE 80/4.5 mcg INHALER IH SCH ×2 (09:48→21:50)
[2022-09-11] MEDS: MONTELUKAST NA 10 MG TABLET PO SCH (21:49)
[2022-09-12] MEDS: DIVALPROEX SODIUM 500 MG TABLET E.C. PO SCH (09:28)
[2022-09-12] MEDS: ASPIRIN 81 MG CHEWABLE TABLETS PO SCH (09:29)
[2022-09-12] MEDS: CLOPIDOGREL BISULFATE 75 MG TABLET (FP) PO SCH (09:29)
[2022-09-12] MEDS: CEFTRIAXONE 2 GM in DEXTROSE 5%-WATER 100 ML IVPB SCH (09:29)
[2022-09-12] MEDS: SERTRALINE HCL 25 MG TABLET (FP) PO SCH (09:29)
[2022-09-12] MEDS: BUDESONIDE/FORMETEROL FUMARATE 80/4.5 mcg INHALER IH SCH (09:30)
[2022-09-12 13:46] VITALS: BP 137/85; PULSE 65; RESP 18; TEMP 98
== END 2022-09-12 16:51 | disposition home or self-care (01) | DRG 392 ==
LOC: JER 13:43 → JERBED 15:24 → J4W 20:15 → J8W 09-08 18:40
PROVIDERS: ADMIT Internal Medicine; ATTEND Internal Medicine
DX: K57.32 Diverticulitis of large intestine without perforation or abscess without bleeding (principal); Z68.41 Body mass index [BMI] 40.0-44.9, adult; G40.909 Epilepsy, unspecified, not intractable, without status epilepticus; I73.9 Peripheral vascular disease, unspecified; E78.5 Hyperlipidemia, unspecified; E66.01 Morbid (severe) obesity due to excess calories; I25.10 Atherosclerotic heart disease of native coronary artery without angina pectoris
CPT/HCPCS: 0241U-QW; 36415; 70450-TC; 71045-TC-FY; 72125-TC; 74174-TC; 74176-TC; 80053; 82272; 83605; 83690; 83735; 84484; 85025; 85610; 85730; 86140; 86850; 86900; 86901; 87040; 93005; 93010; 99285-25; Q9967

== ENCOUNTER 2023-02-05 10:46 | Emergency (ER) | payer OTHER ==
[2023-02-05 11:20] VITALS: BP 110/57; PULSE 61; RESP 18; TEMP 98; BMI 39.4
== END 2023-02-05 13:09 | disposition home or self-care (01) ==
LOC: JERFT 10:46
DX: S70.12XA Contusion of left thigh, initial encounter (principal); M79.652 Pain in left thigh; W23.1XXA Caught, crushed, jammed, or pinched between stationary objects, initial encounter
CPT/HCPCS: 99282-25

== ENCOUNTER 2023-08-05 09:08 | Emergency (ER) | payer BC, OTHER ==
[2023-08-05 09:15] VITALS: BMI 36.8
[2023-08-05] MEDS ORDERED: CEFTRIAXONE 1 GM/50 ML BAG ONE (10:46)
[2023-08-05] MEDS: CEFTRIAXONE 1,000 MG in DEXTROSE 5%-WATER - 50 ML IVPB ONE (10:56)
[2023-08-05] MEDS: ACETAMINOPHEN 1000 MG/100 ML BAG IVPB ONE (10:57)
[2023-08-05] MEDS ORDERED: VANCOMYCIN 1 GRAM (PRE-DOCKED) 1,000 MG/250 ML BAG IVPB ONE (11:25)
[2023-08-05] MEDS: VANCOMYCIN 1,000 MG in DEXTROSE 5%-WATER - 250 ML IVPB ONE (11:30)
[2023-08-05 11:36] LABS: BASO % 0.2 % (0-2.0); EOS % 2.1 % (0-4.5); HEMATOCRIT 44.1 % (32.4-45.2); HEMOGLOBIN 14.1 GM/dL (10.7-15.3); LYMPH % 37.4 % (8-40); MCH 27.6 pg (25.7-33.7); MEAN CELL VOLUME 86.1 fl (80-96); MEAN PLT VOLUME 8.9 fl (7.5-11.1); MONO % 7.2 % (3.8-10.2); NEUT % 53.1 % (42.8-82.8); PLATELET COUNT 246 10^3/uL (134-434); RBC 5.13 M/mm3 (3.60-5.2); RDW 14.4 % (11.6-15.6); WHITE BLOOD COUNT 6.1 K/mm3 (4.0-10.0)
[2023-08-05 11:45] LABS: INR 1.27 (0.83-1.09); PROTHROMBIN TIME (PATIENT) 14.7 SEC (9.7-13.0)
[2023-08-05 11:48] LABS: ACTIVATED PTT 34.1 SECONDS (25.2-36.5)
[2023-08-05 11:59] LABS: POTASSIUM 4.1 mmol/L (3.5-5.1)
[2023-08-05 12:02] LABS: ALBUMIN 3.6 g/dl (3.4-5.0)
[2023-08-05 12:03] LABS: CALCIUM 9.5 mg/dL (8.5-10.1)
[2023-08-05 12:04] LABS: BLOOD UREA NITROGEN 16.7 mg/dL (7-18)
[2023-08-05 12:05] LABS: CREATININE 0.7 mg/dL (0.55-1.3)
[2023-08-05 12:06] LABS: BILIRUBIN,TOTAL 0.4 mg/dL (0.2-1)
[2023-08-05 14:48] VITALS: BP 110/57; PULSE 65; RESP 17; TEMP 97.7
== END 2023-08-05 14:48 | disposition home or self-care (01) ==
LOC: JER 09:08
PROC: 3E03329 Introduction of Other Anti-infective into Peripheral Vein, Percutaneous Approach (ICD-10-PCS; principal; 2023-08-05)
PROC: 3E03329 Introduction of Other Anti-infective into Peripheral Vein, Percutaneous Approach (ICD-10-PCS; 2023-08-05)
PROC: 3E03329 Introduction of Other Anti-infective into Peripheral Vein, Percutaneous Approach (ICD-10-PCS; 2023-08-05)
PROC: 3E030GC Introduction of Other Therapeutic Substance into Peripheral Vein, Open Approach (ICD-10-PCS; 2023-08-05)
DX: K08.89 Other specified disorders of teeth and supporting structures (principal); R51.9 Headache, unspecified; R42 Dizziness and giddiness
CPT/HCPCS: 36415; 70450-TC; 70481-TC; 80053; 85025; 85610; 85651; 85730; 86140; 86850; 86900; 86901; 93005; 93010; 96365; 96367; 96368; 96375; 99285-25; J0131; Q9967

== ENCOUNTER 2024-10-06 15:53 | Emergency (ER) | payer OTHER ==
[2024-10-06 16:15] VITALS: BP 120/74; PULSE 62; RESP 18; TEMP 98.1; BMI 34.3
== END 2024-10-06 18:05 | disposition home or self-care (01) ==
LOC: JERFT 15:53
DX: S63.621A Sprain of interphalangeal joint of right thumb, initial encounter (principal); X50.1XXA Overexertion from prolonged static or awkward postures, initial encounter
CPT/HCPCS: 73130-TC-RT-FY; 99283-25